=== PATIENT | female | born 1955 | race Caucasian/White ===

== ENCOUNTER 2017-09-01 14:12 | Emergency (ER) | payer BC ==
[2017-09-01 14:51] LABS: #Lymphocytes 1.2 thou/uL (1.20-3.40); #Monocytes 0.5 thou/uL (0.11-0.59); #Neutrophils 12.8 thou/uL (1.40-6.50); %Basophils 0.1 % (0.0-1.0); %Eosinophils 0.2 % (0.0-10.0); %Lymphocytes 7.9 % (21.0-51.0); %Monocytes 3.3 % (0.0-10.0); %Neutrophils 88.6 % (42.0-75.0); Hemoglobin 13.3 g/dL (12.0-16.0); Mean Corpuscular HGB CONC 32.1 g/dL (32.0-36.0); Mean Corpuscular Volume 90.2 fl (81.0-99.0); Mean Platelet Volume 6.7 fL (7.4-10.4); Platelet Count 456 thou/uL (130-400); RBC Distribution Width 14.1 % (11.5-14.5); White Blood Cell (WBC) Count 14.5 thou/uL (4.8-10.8)
[2017-09-01 15:12] LABS: ALT (SGPT) 40 U/L (8-55); AST (SGOT) 30 U/L (5-34); Alkaline Phosphatase 86 U/L (40-150); Anion Gap 13 mmol/L (10-20); BUN (Urea Nitrogen) 14 mg/dL (9.8-20.1); Bilirubin, Total 0.5 mg/dL (0.2-1.2); Calc. Creatinine Clearance 0 mL/min (70-130); Calcium 9.4 mg/dL (7.8-10.44); Carbon Dioxide 23 mmol/L (23-31); Chloride 105 mmol/L (98-107); Estimated GFR-MDRD 82; Globulin 3.7 g/dL (2.4-3.5); Glucose 131 mg/dL (80-115); Potassium 4.2 mmol/L (3.5-5.1); Protein, Total 7.7 g/dL (6.0-8.3); Sodium 137 mmol/L (136-145)
[2017-09-01] MEDS ORDERED: Ondansetron ODT 4 MG TAB ONE (15:12)
[2017-09-01 15:17] LABS: Troponin I Less than 0.010 ng/mL (< 0.028)
--- NOTE | 2017-09-01 16:00 | RAD ---
ONE VIEW CHEST TWO VIEWS ABDOMEN: HISTORY: Nausea. Vomiting. FINDINGS: Normal cardiac silhouette. The pulmonary vessels and hilum are normal. Costophrenic angles are yasmin r. Hyperinflation with chronic changes. No consolidation or mass. No pneumothorax. No osseous abn ormalities. Bilateral nipple shadows are noted. TWO VIEWS: Multiple surgical clips. Nonspecific bowel gas pattern. No pneumoperitoneum. No bowel distention o r dilatation. No suspicious density in the abdomen or pelvis. IMPRESSION: 1. Hyperinflation with chronic changes. 2. Nonspecific bowel gas pattern. POS: [facility]
== END 2017-09-01 18:06 | disposition home or self-care (01) ==
LOC: ERS 14:12
DX: R11.2 Nausea with vomiting, unspecified (principal); E03.9 Hypothyroidism, unspecified; F41.9 Anxiety disorder, unspecified; K58.9 Irritable bowel syndrome, unspecified; Z79.899 Other long term (current) drug therapy
CPT/HCPCS: 36415; 74022; 80053; 82553; 84484; 85025; 96360; 96361; Q0162

== ENCOUNTER 2018-04-25 21:30 | Inpatient (IN) | payer BC ==
[~2018-04-25 21:30] MED LIST: ISOVUE-370 76%-LOCM 1 ML ONE
[2018-04-25] MEDS ORDERED: Morphine 4 MG/ML VIAL ONE (21:57)
[2018-04-25] MEDS ORDERED: Ondansetron PF 4 MG/2 ML Vial ONE (21:57)
[2018-04-25] MEDS ORDERED: Fentanyl 100 MCG/2 ML VIAL ONE (22:30)
[2018-04-25 22:31] LABS: #Basophils 0.1 thou/uL (0.0-0.2); #Eosinphils 0.1 thou/uL (0.0-0.7); #Lymphocytes 2.7 thou/uL (1.20-3.40); #Monocytes 0.9 thou/uL (0.11-0.59); #Neutrophils 10.1 thou/uL (1.40-6.50); %Basophils 0.7 % (0.0-1.0); %Eosinophils 0.8 % (0.0-10.0); %Lymphocytes 19.3 % (21.0-51.0); %Monocytes 6.4 % (0.0-10.0); %Neutrophils 72.7 % (42.0-75.0); Hemoglobin 11.6 g/dL (12.0-16.0); Mean Corpuscular HGB CONC 30.9 g/dL (32.0-36.0); Mean Corpuscular Hemoglobin 27.9 pg (27.0-31.0); Mean Corpuscular Volume 90.3 fL (78.0-98.0); Mean Platelet Volume 6.2 fL (7.4-10.4); Platelet Count 712 thou/uL (130-400); RBC Distribution Width 14.6 % (11.5-14.5); Red Blood Cell (RBC) Count 4.16 mill/uL (4.20-5.40); White Blood Cell (WBC) Count 13.9 thou/uL (4.8-10.8)
[2018-04-25 22:51] LABS: ALT (SGPT) 7 U/L (8-55); AST (SGOT) 8 U/L (5-34); Alkaline Phosphatase 74 U/L (40-150); Anion Gap 15 mmol/L (10-20); BUN (Urea Nitrogen) 15 mg/dL (9.8-20.1); Bilirubin, Total 0.2 mg/dL (0.2-1.2); Calc. Creatinine Clearance 0 mL/min (70-130); Calcium 9.4 mg/dL (7.8-10.44); Carbon Dioxide 22 mmol/L (23-31); Chloride 105 mmol/L (98-107); Estimated GFR-MDRD Greater than 90; Globulin 4.2 g/dL (2.4-3.5); Glucose 81 mg/dL (80-115); Lipase 4 U/L (8-78); Potassium 4.4 mmol/L (3.5-5.1); Protein, Total 7.2 g/dL (6.0-8.3); Sodium 138 mmol/L (136-145)
[2018-04-25] MEDS ORDERED: Piperacillin/Tazobactam 3.375 GM VIAL ONE (23:46)
--- NOTE | 2018-04-25 23:51 | CT ---
CT ABDOMEN AND PELVIS WITH IV CONTRAST 04/25/18 HISTORY: Intermittent diarrhea and abdominal pain worse in the right lower quadrant. History of Crohn's diseas e. History of bowel ulceration and history of prior removal of small bowel and large bowel. COMPARISON: None available. FINDINGS: There are linear bibasilar densities probably related to bibasilar areas of scarring and/or atelectas is with lucency at the left lung base which may represent bleb in association with chronic lung alcazar es. There are calcifications seen within the liver which may be related to granulomatous disease. There are subcentimeter to small to characterize hypodense lesion seen in each kidney with a larger 1 .7 cm fluid attenuation lesion compatible with a cyst in the left kidney. There is mild left hydronep hrosis and hydroureter present. An approximately 2.7 cm fluid attenuation structure seen in the posterior segment right hepatic lobe compatible with a cyst with a few additional tiny subcentimeter to small to characterize hypodense le sions present. The spleen and pancreas as well as bilateral adrenal glands demonstrate a normal CT appearance. Dense vascular calcifications and atherosclerotic plaque are seen in the abdominal aorta and involvin g the iliac arteries. Multiple surgical clips are seen in a periaortic location as well. There are postsurgical changes in the right abdomen likely related to right hemicolectomy. There is r etained fecal material seen in the remainder of the colon. There are multiple dilated loops of small bowel, largest in the left aspect of the lower abdomen nacho uring 5.3 cm in diameter. Some of the dilated loops of small bowel also demonstrate thickened grey. There is appearance of a mass-like density within the central aspect of the upper pelvis which is mos t likely related to multiple thick walled loops of small bowel which are closely opposed and likely m atted together with associated inflammatory changes present. Centrally within this mass-like density there is an abnormal and irregular margin fluid and air collection likely related to abscess collecti on measuring 4 cm craniocaudal x 5 cm transverse x 2.9 cm AP. The dilated loops of small bowel extend up to this level and is likely the cause of the bowel obstruction which may be related to adhesions and inflammatory process within the central pelvis. No free fluid is seen in the pelvis. The urinary bladder is prominently distended. Degenerative changes are seen in the spine. There is sl ight height loss of the superior end plate of the L1 vertebral body. IMPRESSION: 1. Mass-like area of heterogeneity within the central pelvis which likely represents apposition of multiple thick walled loops of small bowel with associated inflammatory changes. There is a result ant small bowel obstruction with transition point in the region of this abnormal mass-like appearance of multiple closely opposed thick walled loops of bowel. Dilated loops of bowel measure up to 5.3 cm in diameter. Some of these dilated loops of small bowel are also thickened. Findings are likely attr ibutable to patient's known inflammatory bowel disease. 2. Centrally within the areas of multiple thick walled loops of bowel and inflammatory changes, there is an irregular fluid and air collection likely related to abscess collection with greatest dim ension of 5 cm transversely. 3. Postsurgical changes of the abdomen related to right hemicolectomy and removal of loops of sm all bowel. 4. Mild left hydronephrosis and hydroureter likely related to the distended urinary bladder; alt michelle, this could also be related to the inflammatory changes within the central pelvis. 5. Subcentimeter too small to characterize hypodense lesions in each kidney with left renal cyst . 6. Prominent distention of the urinary bladder. 7. Additional findings as described above. 8. Above findings discussed with Dr. Melvin in the Emergency Department on 04/25/18 at 2321 hour s. POS: [facility]
[2018-04-26] MEDS ORDERED: Lorazepam 2 MG/ML VIAL SLOW IVP PRN (00:28)
[2018-04-26] MEDS ORDERED: Ondansetron PF 4 MG/2 ML Vial IVP PRN (00:28)
[2018-04-26] MEDS ORDERED: Morphine 4 MG/ML VIAL SLOW IVP PRN (00:28)
[2018-04-26] MEDS ORDERED: hydrALAZINE 20 MG/ML VIAL SLOW IVP PRN (00:28)
[2018-04-26] MEDS ORDERED: Lactated Ringer's 1,000 ML IV SCH (00:45)
[2018-04-26 01:29] LABS: Bilirubin Negative (Negative); Blood, Urine Negative (Negative); Clarity CLEAR (Clear); Glucose, Urine (Dipstick) Negative (Negative); Leukocyte Negative (Negative); Nitrite Negative (Negative); Protein, Urine (Dipstick) Negative (Neg-Trace); Urobilinogen 0.2 mg/dL (0.2-1.0); pH, Urine 6.5 (5.0-9.0)
[2018-04-26] MEDS: Acetaminophen 1,000 MG in Premix Bag 1 BAG IVPB PRN ×2 (02:31→09:32)
[2018-04-26] MEDS: Lactated Ringer's 1,000 ML IV SCH ×4 (02:31→23:40)
--- NOTE | 2018-04-26 06:04 | HP ---
HISTORY OF PRESENT ILLNESS: Margoth Chew, 62-year-old female, lives in [place], has remote history of Crohn disease, but this diagnosis has been recently questioned. She has been followed by Dr. Nazario. The patient had a colonoscopy at [facility] last year. She has been having for the past year, abdominal discomfort and bloating. She was seen at [facility] several months ago and kept for several days without any radiological testing according to her and discharged home. She is very frustrated. She has been on Remicade for a year after which she stopped this. She stopped all of her Crohn's medications and has not had any problems until within the last year. The patient presents on this occasion and has a white count of 13, hemoglobin 11. Basic metabolic profile normal. She had a CAT scan of the abdomen and pelvis revealing markedly dilated small bowel loops consistent with a bowel obstruction. Bowel dilated up to 5 cm. The bowel seemed to be matted with central collection, probable abscess of 4 cm. NG tube has been placed. She has been admitted, IV antibiotics and GI consultation with high likelihood of her needing abdominal exploration for her bowel obstruction, abscess, and most likely Crohn's related problems. The patient requests that she would not see Dr. Nazario again. Her past surgical history is extensive. At 18 years of age, she reports a laparotomy and was told she had regional enteritis. At 22 years of age, she had a small bowel resection for Crohn disease. About two years later, she had another small bowel resection. About two years later after that, in her 20s, she had a balloon dilatation of small bowel. CAT scan suggests a right colon resection in the past. ALLERGIES: NONE. SOCIAL HISTORY: Tobacco 1/2 pack per day. Alcohol, socially. MEDICATIONS: None. PAST SURGICAL HISTORY: Extensive, including hysterectomy, appendectomy, breast implants and removal. She has history of hypothyroidism. PHYSICAL EXAMINATION: GENERAL: The patient is a thin lady, in no apparent distress. She seems frustrated with her condition. VITAL SIGNS: Heart rate 78, respiratory rate 18, blood pressure 136/74. HEAD, EARS, EYES, NOSE AND THROAT: Unremarkable. LUNGS: Clear to auscultation. CARDIAC: Regular rate and rhythm without murmur or gallop. ABDOMEN: Diffusely tender, mildly distended, mildly tympanitic. EXTREMITIES: Unremarkable. No ankle edema. LABORATORIES: As noted above. ASSESSMENT/PLAN: 1. Small bowel obstruction. We will place an NG tube. We will initiate the intravenous antibiotics. We will obtain GI consultation. She is related to past history of regional enteritis and has been on medication for that, but Dr. Nazario has questioned this diagnosis. The patient does not take any medication for her Crohn disease in the last year. She has had problems over the last year. We will await GI consultation. It is likely that she will need a laparotomy, adhesiolysis, drainage of abscess, possible bowel resection. 2. Tobacco abuse. Job ID: [id number]
[2018-04-26] MEDS: Ketorolac Tromethamine 30 MG/ML VIAL IVP SCH ×3 (06:05→18:13)
[2018-04-26] MEDS: Piperacillin/Tazobactam 3.375 GM in Sodium Chloride 0.9% 100 ML IVPB SCH ×3 (06:06→18:13)
[2018-04-26 06:36] VITALS: BMI 15.7
[2018-04-26 06:53] LABS: #Eosinphils 0.1 thou/uL (0.0-0.7); #Lymphocytes 2.2 thou/uL (1.20-3.40); #Monocytes 0.5 thou/uL (0.11-0.59); #Neutrophils 8.2 thou/uL (1.40-6.50); %Basophils 0.1 % (0.0-1.0); %Eosinophils 0.6 % (0.0-10.0); %Lymphocytes 20.2 % (21.0-51.0); %Monocytes 4.6 % (0.0-10.0); %Neutrophils 74.5 % (42.0-75.0); Hemoglobin 10.9 g/dL (12.0-16.0); Mean Corpuscular HGB CONC 31.5 g/dL (32.0-36.0); Mean Corpuscular Hemoglobin 28.3 pg (27.0-31.0); Mean Corpuscular Volume 89.6 fL (78.0-98.0); Mean Platelet Volume 6.2 fL (7.4-10.4); Platelet Count 785 thou/uL (130-400); RBC Distribution Width 14.6 % (11.5-14.5); Red Blood Cell (RBC) Count 3.87 mill/uL (4.20-5.40); White Blood Cell (WBC) Count 11.1 thou/uL (4.8-10.8)
[2018-04-26 07:10] LABS: ALT (SGPT) 8 U/L (8-55); AST (SGOT) 13 U/L (5-34); Albumin 2.7 g/dL (3.4-4.8); Alkaline Phosphatase 66 U/L (40-150); Anion Gap 14 mmol/L (10-20); BUN (Urea Nitrogen) 13 mg/dL (9.8-20.1); Bilirubin, Total 0.3 mg/dL (0.2-1.2); Calc. Creatinine Clearance 55 mL/min (70-130); Calcium 9.1 mg/dL (7.8-10.44); Carbon Dioxide 21 mmol/L (23-31); Chloride 109 mmol/L (98-107); Estimated GFR-MDRD Greater than 90; Globulin 3.8 g/dL (2.4-3.5); Glucose 79 mg/dL (80-115); Potassium 3.7 mmol/L (3.5-5.1); Protein, Total 6.5 g/dL (6.0-8.3); Sodium 140 mmol/L (136-145)
--- NOTE | 2018-04-26 08:46 | RAD ---
KUB: Date: 04/26/18 PROVIDED CLINICAL HISTORY: Enteric catheter placement. FINDINGS: Enteric catheter is noted, the tip of which projects in the left upper quadrant, in the expected loca tion of gastric fundus. Surgical clips are seen overlying the abdomen. The bowel gas pattern is nonsp ecific. Contrast material is seen within the renal collecting systems and ureters. The visualized lucy g bases appear clear. No evidence for pneumoperitoneum. IMPRESSION: Enteric catheter positioning as above. POS: [facility]
[2018-04-26] MEDS: Pantoprazole 40 MG VIAL IVP SCH (09:29)
--- NOTE | 2018-04-26 13:11 | RAD ---
2 VIEWS CHEST: Date: 04/26/18 PROVIDED CLINICAL HISTORY: Preop. FINDINGS: Cardiac and mediastinal silhouette is within normal limits. No focal consolidation, pleural fluid, or pneumothorax apparent. Enteric catheter is present, the proximal side hole lucency of which approxim ates the gastroesophageal junction and could be advanced. IMPRESSION: 1. No evidence for an acute cardiopulmonary process. 2. Enteric catheter positioning as above. POS: [facility]
--- NOTE | 2018-04-26 13:13 | RAD ---
2 VIEWS ABDOMEN: Date: 04/26/18 PROVIDED CLINICAL HISTORY: Right lower quadrant pain. FINDINGS: Comparison made with the study dated 04/26/18. Multiple loops of dilated gas-filled bowel are seen involving the left upper quadrant. Enteric cathet er positioned in the proximal left upper quadrant. No evidence for pneumoperitoneum. Multiple surgica l clips are seen. IMPRESSION: Dilated loops of gas-filled bowel within the left mid abdomen. POS: [facility]
--- NOTE | 2018-04-26 14:56 | PRG ---
DATE OF SERVICE: 04/26/2018 SUBJECTIVE: Margoth Chew is doing well today. OBJECTIVE: VITAL SIGNS: Temperature 98.2, heart rate 115, respirations 18, blood pressure 112/74. HEAD, EARS, EYES, NOSE, AND THROAT: Unremarkable. LUNGS: Clear to auscultation. CARDIAC: Rhythm without murmur or gallop. ABDOMEN: Diffusely tender, mildly distended, guarding. EXTREMITIES: Unremarkable. LABORATORY DATA: White count 11, hemoglobin 10.9. Basic metabolic profile normal. I have reviewed her CAT scan with Dr. Mazariegos and discussed with him as well as radiologist. ASSESSMENT AND PLAN: Plan is for laparotomy for bowel obstruction. Overnight, her NG tube has put out 650 plus milliliters, has put out abundant amount since 7 this morning. Risks of infection, bleeding, reoperation explained. We will plan placement of a central line and consider TPN. Further discussion with the patient reveals that she has suffered 25 pounds weight loss over the past year due to her GI problems. Her history and radiological findings certainly sound like Crohn disease. Dr. Mazariegos will be seeing her postoperatively for guidance for Crohn's management. Job ID: [id number]
[2018-04-26] MEDS ORDERED: Glycopyrrolate 0.2 MG/ML 5 ML SYRINGE ONE (15:32)
[2018-04-26] MEDS ORDERED: Naloxone HCl 0.4 mg/ml Vial ONE (15:32)
[2018-04-26] MEDS ORDERED: Ondansetron PF 4 MG/2 ML Vial ONE (15:32)
[2018-04-26] MEDS ORDERED: Rocuronium Bromide 10 MG/ML (10ML VIAL) ONE (15:32)
[2018-04-26] MEDS ORDERED: ePHEDrine/0.9% NaCl/PF SYRINGE 50 mg/10 ml ONE (15:32)
[2018-04-26] MEDS ORDERED: Lidocaine 1% PF 5 ML VIAL ONE (15:32)
[2018-04-26] MEDS ORDERED: PROPOFOL 200 MG/20 ML VIAL ONE (15:32)
[2018-04-26] MEDS ORDERED: Fentanyl 100 MCG/2 ML VIAL ONE ×2 (18:38→23:12)
[2018-04-26] MEDS ORDERED: Fentanyl 250 MCG/5 ML VIAL ONE (18:56)
[2018-04-26] MEDS ORDERED: Sodium Chloride 0.9% 30 ML ONE (19:11)
[2018-04-26] MEDS: Enoxaparin Sodium 40 MG/0.4 ML SYRINGE SC SCH (20:35)
[2018-04-26] MEDS ORDERED: Rocuronium Bromide 50 MG/5 ML VIAL ONE (21:37)
[2018-04-26] MEDS ORDERED: KETAMINE 100 MG/ML (5ML VIAL) ONE (21:37)
[2018-04-26] MEDS ORDERED: diphenhydrAMINE 50 MG/ML VIAL IVP PRN (23:17)
[2018-04-26] MEDS ORDERED: HYDROmorphone 2 MG/ML VIAL ONE (23:17)
[2018-04-26] MEDS ORDERED: Promethazine HCl 25 MG/ML VIAL IM PRN (23:17)
[2018-04-26] MEDS ORDERED: Zolpidem Tartrate 5 MG TAB PO PRN (23:17)
[2018-04-26] MEDS ORDERED: Naloxone HCl 0.4 mg/ml Vial IV PRN (23:17)
[2018-04-26] MEDS ORDERED: diphenhydrAMINE 25 MG CAP PO PRN (23:17)
[2018-04-26] MEDS ORDERED: diphenhydrAMINE 50 MG/ML VIAL IM PRN (23:17)
[2018-04-26] MEDS ORDERED: Communication Order-Pharmacy FS SCH (23:30)
--- NOTE | 2018-04-26 23:40 | RAD ---
PORTABLE AP CHEST X-RAY 04/26/18 HISTORY: Central line placement. COMPARISON: 04/26/18 at 1204 hours. FINDINGS: The nasogastric tube has been advanced, but the most proximal side hole overlies the region of the di stal esophagus and the nasogastric tube should be further advanced. There has been interval placement of a left subclavian central venous catheter with the tip overlying the distal SVC. No pneumothorax or pleural effusion is seen. There is mild atelectasis at each lung base, greater on the left. Cardia c silhouette and pulmonary vasculature are within normal limits. Surgical clips overlie the upper abd omen. No other interval change. IMPRESSION: 1. Nasogastric tube has been advanced since the prior study, but the most proximal side hole ove rlies the distal esophagus. The nasogastric tube should be advanced. 2. Interval placement of left subclavian central venous catheter with tip overlying the distal S VC. No pneumothorax is seen. 3. Bibasilar atelectasis. POS: [facility]
[2018-04-27] MEDS: Ketorolac Tromethamine 30 MG/ML VIAL IVP SCH ×5 (00:45→23:49)
[2018-04-27] MEDS: Piperacillin/Tazobactam 3.375 GM in Sodium Chloride 0.9% 100 ML IVPB SCH ×5 (00:46→23:50)
--- NOTE | 2018-04-27 00:49 | CON ---
DATE OF CONSULTATION: 04/26/2018 REASON FOR CONSULTATION: Abnormal GI imaging, probable history of Crohn's disease. CONSULTING PHYSICIAN: Dr. Danilo Valentino. HISTORY OF PRESENT ILLNESS: The patient is a 62-year-old female with past medical history of Crohn's disease, presenting with complaints of abdominal discomfort/pain. The patient states that over the last year and a half she has had recurrent bouts of intermittent abdominal pain characterized as increased cramping/sharp type pain located in the right lower quadrant. The pain would be intermittent, would radiate to the suprapubic and periumbilical regions and would reach a severity of approximately 8 to 9/10. There were no clear alleviating or exacerbating factors with prior extensive workup performed by Dr. Nazario over the last year and half including an upper endoscopy, colonoscopy, and multiple imaging studies. However, given worsening of her abdominal pain, it prompted her to seek healthcare assistance here at [facility]. Upon evaluation in the hospital, she had a CT scan revealing markedly dilated small loops of bowel consistent with a bowel obstruction. She subsequently had an NG tube placed, was placed on IV antibiotics with plans to proceed with laparoscopy today. Upon talking with the patient, she had been diagnosed with Crohn's disease in her early 20s when she had presenting symptoms of increased right lower quadrant abdominal pain and constipation/change in bowel habits. At that time, she had a workup consisting of a laparoscopy with biopsies at that time showing "regional enteritis." With this particular diagnosis, no treatment was given and no further studies were performed and she had complete resolution of her pain for several years afterwards. However, approximately 10-15 years later, she had return of her abdominal pain and was evaluated in the hospital. She was noted to have a small-bowel obstruction at that particular point in time and subsequently treated with surgical resection as well as antibiotics for that particular condition. Ultimately, she has had a total of 2 small bowel resections during the last 20-30 years with unknown amount of small bowel resected. However, after the 2nd small bowel obstruction, she was placed on azulfidine with questionable response in symptoms. 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 She was subsequently placed on Remicade and received approximately four doses of the medication with significant improvement in her symptoms. Over the next 10-15 years, she did not have any further recurrences of her symptoms and was not being followed by GI physician during that time. However, approximately 1.5 years ago she had again increased right lower quadrant abdominal pain as well as signs of sepsis for which she was admitted to the [facility], there she was evaluated by Dr. Nazario with EGD and colonoscopy not showing any significant pathology. Given the small bowel involvement of her Crohn's disease, she has never had a capsule endoscopy and CT scans in the past have been relatively normal for overt pathology. Currently, she states that she has increased nausea, vomiting, and right lower quadrant abdominal pain. However, denies any fevers or chills, diarrhea, or constipation. REVIEW OF SYSTEMS: A 10-category review of systems was obtained with all responses negative except for the pertinent positives as listed in HPI. PAST MEDICAL HISTORY: Regional enteritis/Crohn's disease. PAST SURGICAL HISTORY: 1. Hysterectomy. 2. Appendectomy. 3. Breast implants and removal. FAMILY HISTORY: She states that her mother was diagnosed with Crohn's disease. Denies any GI malignancies. SOCIAL HISTORY: She previously had been smoking one half pack per day, now she currently engages in e-cigarettes. Denies any alcohol or illicit drug use. OUTPATIENT MEDICATIONS: None. ALLERGIES: NO KNOWN DRUG ALLERGIES. PHYSICAL EXAMINATION: VITAL SIGNS: Temperature 98.2, pulse 115, blood pressure 112/74, respiratory rate 18, saturating 94% on room air. GENERAL: The patient was lying in bed, in no acute distress. Alert and oriented x4. HEENT: Normocephalic, atraumatic. NECK: Supple. No JVD or scleral icterus noted. A NG tube was seen emanating from her left nares, placed to low intermittent wall suction with clear fluid aspirate. CARDIOVASCULAR: Tachycardic rate, but regular rhythm. No discernible murmurs, gallops, or rubs. RESPIRATORY: Clear to auscultation bilaterally with no discernible wheezes or rales. ABDOMEN: High-pitched bowel sounds primarily within the periumbilical region. Soft, [id number] distention with significant tenderness to palpation in the midepigastric, periumbilical and all abdominal quadrants. Peristaltic waves were noted on inspection as well. EXTREMITIES: No cyanosis, clubbing, or edema. LABORATORY DATA: CBC with a white blood cell count of 11.1, hemoglobin 10.9, hematocrit 34.7, platelets 785. Chemistry with a sodium of 140, potassium 3.7, chloride 109, CO2 of 21, BUN 13, creatinine 0.65, glucose 79, AST 13, ALT 8, alkaline phosphatase 66, total bilirubin 0.3, albumin 2.7, lipase 4. Urinalysis negative for urinary tract infection. IMAGING DATA: CT of the abdomen and pelvis was obtained on April 25, 2018, which showed a mass like area of heterogeneity within the central pelvis, which likely represented multiple thick walled loops of small bowel with associated inflammatory changes resulting in a small bowel obstruction with transition point at the region of this abnormal masslike structure. Multiple dilated loops of bowel were seen measuring up to 5.3 cm in diameter with some of the dilated loops also thickened consistent with known inflammatory bowel disease. There was also an irregular fluid and air collection, likely related to an abscess with the greatest dimension measuring approximately 5 cm transversely. Postsurgical changes consistent with right hemicolectomy and removal of small bowel loops were seen and mild left hydronephrosis and hydroureter were also seen likely related to distended urinary bladder. ASSESSMENT AND PLAN: The patient is a 62-year-old female with past medical history of Crohn's disease, presenting with abdominal pain and abnormal GI imaging. Abdominal pain/Crohn's flare. The patient is presenting with a history where she was diagnosed with Crohn's disease in her 20s and has undergone multiple surgeries in the past for small bowel obstructions, most likely related to flares in her Crohn's disease. She had been placed on biologic therapy in the past and experienced significant relief in her symptoms with no further episodes of small-bowel obstruction. However, the administration of Remicade was not on a regular basis with return of what appears to be her Crohn's type symptoms over the course of the last year and year and half, now presenting with increased right lower quadrant abdominal pain and CT findings consistent with multiple thickened small bowel loops as well as a fluid collection consistent with a 5 cm abscess within the bowel mesentery. At this time, based on her imaging and her clinical history, it sounds consistent with inflammatory bowel disease/Crohn's with a probable Crohn's flare. RECOMMENDATIONS: 1. Agree with taking the patient for laparoscopy today for resection of the small-bowel obstruction as well as drainage of the abscess as part of treatment for her Crohn's disease. 2. Agree with broad-spectrum antibiotics at least for the time being until cultures of the abscess are obtained and antibiotics can be tailored further. 3. We would hold off on steroid management right now in the postoperative given concern for recurrent infection and/or wound breakdown. 4. The patient will ultimately need to be followed up in the GI clinic and re-evaluated for this diagnosis of Crohn's disease, which the pathology report from bowel resection today should help with that diagnosis. If indeed this is Crohn's disease, she will ultimately need to be placed on biologic therapy given the presence of small bowel Crohn's, which could be considered complicated disease. Given her response to Remicade in the past, this would be an ideal choice, but may be more amenable to newer biologics. 5. We will continue to follow. Please call with any questions. Job ID: [id number]
[2018-04-27] MEDS: Lactated Ringer's 1,000 ML IV SCH ×3 (00:54→17:21)
--- NOTE | 2018-04-27 03:11 | OP ---
DATE OF PROCEDURE: 04/26/2018 PREOPERATIVE DIAGNOSES: History of Crohn disease, small-bowel obstruction, interloop abscesses, weight loss, tobacco use. POSTOPERATIVE DIAGNOSES: History of Crohn disease, small-bowel obstruction, interloop abscesses, weight loss, tobacco use with extensive adhesions and two separate interloop abscesses. PROCEDURES PERFORMED: Left subclavian vein central line, exploratory laparotomy, extensive adhesiolysis for 3 to 3-1/2 hours, ileocolic resection (prior right colectomy anastomosis) with ileostomy. ANESTHESIA: General. Note, a Kim catheter left in place as the bladder was tightly adherent to the small bowels with the sigmoid colon. There were dense adhesions of small bowel to the abdomen with interloop abscess. In this location, also another area of the terminal ileum interloop abscesses, matted small bowel in the left lower quadrant, two separate processes. DESCRIPTION OF PROCEDURE: The patient was taken to the operating room, where under general anesthesia in supine position, the left chest was prepared with ChloraPrep, draped in routine fashion. Using Seldinger technique, after access to the left subclavian vein by infraclavicular approach, threading the J-wire, placing the catheter, removed the J-wire, secured the catheter with two interrupted sutures of 3-0 silk. Sterile dressing applied. Each port filled with blood and flushed with saline solution. Abdomen was prepared with ChloraPrep, draped in routine fashion. Kim catheter was placed at the beginning of the procedure and left in place. Incision was made and carried down through skin and subcutaneous tissue, midline and abdominal cavity sharply. There were extensive adhesions to the anterior abdominal wall taken down piecely, freeing adhesions. There was an inflammatory process with an abscess in her loop terminal ileum adherent to the right lower quadrant mid abdominal wall. This took a prolonged period of time to take down as did another process of the terminal ileum with matted small bowel adherent to the bladder, abdominal wall and the sigmoid colon. These areas were piecely dissected free. There was a firmness in the small bowel involved with matted process. Yellow purulent material drained from each of the two matted abscesses. Sigmoid colon was kept free of harm, carefully inspected although it was secondarily involved, it was not violated. Bladder was also involved in inflammatory process and was carefully dissected free and there was no evidence of bladder injury. Once the adhesions were taken down, the ileocolic anastomosis was so inflamed and so closely adherent to the two areas of the ileum that involved in an interloop abscess and inflammation and scarring. The segment of small bowel and ileocolic anastomosis were taken down, dividing the transverse colon with EDDA stapler, divided the mesentery with the LigaSure and between clamps, ligated with 2-0 silk ties. This was dissected free close to the bowel. The healthy area of the bowel proximal to the inflammatory abscess areas were divided with a EDDA stapler. Abdominal cavity was thoroughly irrigated with saline solution, irrigant evacuated. Good hemostasis obtained. Sponge and needle counts were correct. Defect was made in the left lower quadrant for the ileostomy. The left lower quadrant was chosen because of induration and inflammation on the right abdomen from the interloop abscesses and adhesions. The patient had a very thin rectus muscle. Ellipse of skin was excised. Cruciate incision was made in the anterior rectus fascia and fascia dilated digitally to accommodate the ileostomy. It was brought through and then two separate films were placed on the viscera and abdominal wall and there was essentially no omentum. The midline fascia was closed with continuous suture of #1 PDS. Skin and subcutaneous tissues were irrigated and midline skin approximated at the midline about the umbilicus with ana, left open superiorly and inferiorly. Wet-to-dry dressings applied. Ileostomy maturation undertaken by excising the staple line partially and placing 4 Clara sutures of 3-0 Vicryl and simple sutures of 3-0 Vicryl with complete maturation. Stoma paste and ileostomy appliance secured. The patient tolerated the procedure well. Job ID: [id number]
[2018-04-27] MEDS: Ondansetron PF 4 MG/2 ML Vial IVP PRN ×2 (03:16→10:13)
[2018-04-27 03:59] LABS: ALT (SGPT) 7 U/L (8-55); AST (SGOT) 8 U/L (5-34); Albumin 1.9 g/dL (3.4-4.8); Alkaline Phosphatase 49 U/L (40-150); Anion Gap 11 mmol/L (10-20); BUN (Urea Nitrogen) 14 mg/dL (9.8-20.1); Bilirubin, Total 0.4 mg/dL (0.2-1.2); Calc. Creatinine Clearance 57 mL/min (70-130); Calcium 7.7 mg/dL (7.8-10.44); Carbon Dioxide 20 mmol/L (23-31); Chloride 111 mmol/L (98-107); Estimated GFR-MDRD Greater than 90; Globulin 2.8 g/dL (2.4-3.5); Glucose 110 mg/dL (80-115); Magnesium 0.8 mg/dL (1.6-2.6); Potassium 3.1 mmol/L (3.5-5.1); Protein, Total 4.7 g/dL (6.0-8.3); Sodium 139 mmol/L (136-145)
[2018-04-27] MEDS ORDERED: Magnesium 2 GM/50 ML 2 GM in Premix Bag 1 BAG IVPB SCH ×2 (04:45→17:45)
[2018-04-27 07:11] LABS: Band 62 % (5-11); Hemoglobin 10.3 g/dL (12.0-16.0); Lymphocytes 11 % (21-51); MDiff Complete? YES; Mean Corpuscular HGB CONC 31.4 g/dL (32.0-36.0); Mean Corpuscular Hemoglobin 28.3 pg (27.0-31.0); Mean Corpuscular Volume 90.1 fL (78.0-98.0); Metamyelocyte 1 % (0-0); Monocytes 3 % (0-10); Myelocyte 2 % (0-0); Neutrophil 21 % (42-75); Platelet Count 608 thou/uL (130-400); RBC Distribution Width 14.1 % (11.5-14.5); Red Blood Cell (RBC) Count 3.65 mill/uL (4.20-5.40); Reflex for Review?? YES; White Blood Cell (WBC) Count 23.2 thou/uL (4.8-10.8)
[2018-04-27] MEDS: Pantoprazole 40 MG VIAL IVP SCH (08:06)
[2018-04-27] MEDS: Potassium Chloride 20 MEQ in Lactated Ringer's 1,000 ML IV SCH (18:45)
[2018-04-27] MEDS ORDERED: Potassium Chloride 40 MEQ in Premix Bag 1 BAG IVPB SCH (19:00)
--- NOTE | 2018-04-27 19:07 | PRG ---
DATE OF SERVICE: 04/27/2018 SUBJECTIVE: Ms. Chew is doing well today, one day postop, extensive adhesiolysis more than 3 hours with colon and small bowel resection, ileostomy for extensive Crohn disease, matted bowel, bowel obstruction, interloop abscesses x2. OBJECTIVE: VITAL SIGNS: Temperature 97.4 degrees, heart rate 67, blood pressure 95/61. GENERAL: She is ambulated. She is feeling fairly well. 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 Her gastric drainage is 2500 mL over 24 hours. Kim output 200 mL recorded. We left her Kim in place due to her bladder be involved in the Crohn's process. Although there is no hematuria, will need to rest the bladder for a few days prior to removing the Kim. LUNGS: Clear to auscultation. CARDIAC: Regular rate and rhythm without murmur or gallop. ABDOMEN: Soft, nondistended. No bowel sounds. Ileostomy healthy. LABORATORY DATA: White count 23,000, hemoglobin 10.3. Sodium 139, potassium 3.1, magnesium 0.8 replaced. We will give her another bolus tonight. ASSESSMENT AND PLAN: 1. Crohn disease exacerbation, status post extensive surgery and ileostomy. This can be reversed in the future. 2. Malnutrition. We will initiate TPN. Continue IV fluids, NG tube to awaiting GI recovery. Wound Care has seen her wound and attending to that. Job ID: [id number]
[2018-04-27] MEDS: busPIRone HCl 10 MG TAB PO SCH (20:25)
[2018-04-27] MEDS: Enoxaparin Sodium 40 MG/0.4 ML SYRINGE SC SCH (20:25)
--- NOTE | 2018-04-27 23:25 | PRG ---
DATE OF SERVICE: 04/27/2018 REASON FOR CONSULTATION: Crohn disease. SUBJECTIVE: The patient underwent laparotomy yesterday with extensive adhesiolysis as well as small-bowel resection and ileostomy for extensive Crohn disease. Interloop abscesses x2 were also found during this and successfully intervened upon. Today, she states that her abdomen feels significantly improved when compared to previous with no pain at the current point of time. She does continue to have the NG tube in place per General Surgery recommendations. Currently, denies any nausea, vomiting, fevers, chills, GI bleeding, or abdominal pain. OBJECTIVE: VITAL SIGNS: Temperature 97.5, pulse 78, blood pressure 94/59, respiratory rate 20, saturating 96% on room air. GENERAL: The patient is lying in bed, in no acute distress. Alert and oriented x4. CARDIOVASCULAR: Regular rate and rhythm. RESPIRATORY: Clear to auscultation bilaterally. ABDOMEN: Hypoactive bowel sounds. Soft and nondistended. Tenderness to palpation along the trocar sites. EXTREMITIES: No cyanosis, clubbing, or edema. LABORATORY DATA: CBC with a white blood cell count 23.2, hemoglobin 10.3, hematocrit 32.9, platelets 608. Chemistry with a sodium of 139, potassium 3.1, chloride 111, CO2 20, BUN 14, creatinine 0.63, glucose 110, AST 8, ALT 7, alkaline phosphatase 49, total bilirubin 0.4. IMAGING DATA: No current GI imaging is available for review. ASSESSMENT AND PLAN: The patient is a 62-year-old female with past medical history of Crohn disease, presenting with abdominal pain and abnormal gastrointestinal imaging consistent with inflammatory bowel disease flare. Abdominal pain/Crohn flare. The patient is presenting with a longstanding history of Crohn disease that was diagnosed in her 20s and has gone multiple small bowel surgeries due to small-bowel obstructions secondary to uncontrolled Crohn disease, now currently presenting with increased right lower quadrant abdominal pain and CT findings consistent with Crohn disease of the small intestine as well as abscess formation. She ultimately underwent laparoscopy on April 26, 2018 with extensive lysis of adhesions, small bowel resection as well as intervention upon two interloop abscesses, currently doing well in the postoperative period. RECOMMENDATIONS: 1. We would hold off on steroid management for right now in the postoperative given concern for infection and/or wound breakdown. Most likely, these could be started shortly before discharge with followup in the GI Clinic as an outpatient. If steroids were to be started, we would start prednisone 40 mg daily with close followup in the GI Clinic within two weeks after discharge. 2. Ultimately, the patient will need to be followed up in the GI Clinic and re-evaluated for the diagnosis of Crohn disease with the small bowel resected yesterday guiding a fair amount of future therapy as well as confirm the diagnosis of Crohn disease (if present). Given the multiple small-bowel obstructions and presence of small bowel Crohn, this could be considered complicated disease, which would require more aggressive approach to include biologic plus immune modulator therapy. 3. We will sign off at this time. Please have the patient follow up in the GI Clinic within two weeks of discharge with placing the patient on prednisone 40 mg daily at discharge in order to start treatment for her Crohn disease at which point, we will take over and taper down the steroids at her soonest clinic visit. Job ID: [id number]
[2018-04-28] MEDS: Ondansetron PF 4 MG/2 ML Vial IVP PRN (02:58)
[2018-04-28 03:32] LABS: Anion Gap 11 mmol/L (10-20); BUN (Urea Nitrogen) 16 mg/dL (9.8-20.1); Calc. Creatinine Clearance 58 mL/min (70-130); Calcium 7.7 mg/dL (7.8-10.44); Carbon Dioxide 22 mmol/L (23-31); Chloride 108 mmol/L (98-107); Estimated GFR-MDRD Greater than 90; Glucose 94 mg/dL (80-115); Magnesium 2.2 mg/dL (1.6-2.6); Potassium 4.3 mmol/L (3.5-5.1); Sodium 137 mmol/L (136-145)
[2018-04-28] MEDS: Piperacillin/Tazobactam 3.375 GM in Sodium Chloride 0.9% 100 ML IVPB SCH ×4 (05:51→23:09)
[2018-04-28] MEDS: Ketorolac Tromethamine 30 MG/ML VIAL IVP SCH ×4 (05:51→23:10)
[2018-04-28] MEDS: HYDROmorphone 10 mg/100 ml CADD IVPB PRN (05:52)
[2018-04-28] MEDS: Levothyroxine 100 MCG SDV IVP SCH (05:52)
[2018-04-28] MEDS ORDERED: Levothyroxine Sodium 75 MCG TAB PO SCH (06:00)
[2018-04-28] MEDS: Potassium Chloride 20 MEQ in Lactated Ringer's 1,000 ML IV SCH ×2 (09:13→18:32)
[2018-04-28] MEDS: busPIRone HCl 10 MG TAB PO SCH ×3 (09:14→20:30)
[2018-04-28] MEDS: Pantoprazole 40 MG VIAL IVP SCH (09:14)
[2018-04-28] MEDS: DULoxetine 30 MG CAP PO SCH (09:14)
--- NOTE | 2018-04-28 13:35 | PRG ---
DATE OF SERVICE: 04/28/2018 SUBJECTIVE: Margoth Chew is doing well today. She has no complaints. 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 OBJECTIVE: VITAL SIGNS: 97.4 degrees, 72, and 102/63. NG-tube output in 24 hours 750 mL. Kim output 650 mL. LUNGS: Clear to auscultation. CARDIAC: Regular rate and rhythm. No murmur or gallop. ABDOMEN: Soft, nontender, and nondistended. No bowel sounds. Ileostomy healthy. She has had some output of her ileostomy. LABORATORY DATA: White count 23,000, today hemoglobin 10.3, and 62% bands. Sodium 137, potassium 4.3, BUN and creatinine normal, and magnesium has been replaced, was normal at 2.2. ASSESSMENT AND PLAN: 1. Ileus as expected after 3.5 hour of adhesiolysis and ileocolic resection. Await pathology. Continue antibiotics for drainage of intraabdominal abscesses related to most likely Crohn disease. Await pathology. 2. Malnutrition. Start TPN. Awaiting pharmacy to mix this. 3. Good mobility level. Job ID: [id number]
[2018-04-28] MEDS: POTASSIUM ACETATE IV SCH (15:15)
[2018-04-28] MEDS: [UNRECOGNIZED DRUG - OTHER] IV SCH (15:15)
[2018-04-28] MEDS: CALCIUM CHLORIDE IV SCH (15:15)
[2018-04-28] MEDS: Enoxaparin Sodium 40 MG/0.4 ML SYRINGE SC SCH (20:30)
[2018-04-29] MEDS: Potassium Chloride 20 MEQ in Lactated Ringer's 1,000 ML IV SCH ×2 (02:51→09:03)
[2018-04-29] MEDS: Levothyroxine 100 MCG SDV IVP SCH (05:26)
[2018-04-29] MEDS: Ketorolac Tromethamine 30 MG/ML VIAL IVP SCH ×4 (05:26→23:50)
[2018-04-29] MEDS: Piperacillin/Tazobactam 3.375 GM in Sodium Chloride 0.9% 100 ML IVPB SCH ×4 (05:26→23:52)
[2018-04-29] MEDS: busPIRone HCl 10 MG TAB PO SCH ×3 (09:25→20:27)
[2018-04-29] MEDS: DULoxetine 30 MG CAP PO SCH (09:25)
[2018-04-29] MEDS: Pantoprazole 40 MG VIAL IVP SCH (09:25)
[2018-04-29] MEDS: CALCIUM CHLORIDE IV SCH (13:55)
[2018-04-29] MEDS: [UNRECOGNIZED DRUG - OTHER] IV SCH (13:55)
[2018-04-29] MEDS: POTASSIUM ACETATE IV SCH (13:55)
--- NOTE | 2018-04-29 15:24 | PRG ---
DATE OF SERVICE: 04/29/2018 SUBJECTIVE: Margoth Chew is a 62-year-old female status post extensive adhesiolysis, ileostomy, and ileocolic resection 2 days ago. She is doing fairly well. She is not having much pain. She is taking the ice chips. OBJECTIVE: VITAL SIGNS: 98.2 degrees, 69, and 120/75. NG-tube output last 24 hours, 750 mL. Urine output 800 mL. Kim was removed yesterday and she is voiding. She is started on TPN. LUNGS: Clear to auscultation. CARDIAC: Regular rate and rhythm without murmur or gallop. ABDOMEN: Soft, flat, and nondistended. Ileostomy healthy. EXTREMITIES: Unremarkable. Wound VAC in place. LABORATORY DATA: No labs today. ASSESSMENT AND PLAN: Doing well after laparotomy and ileostomy. Pathology report reveals transmural acute inflammation and abscess formation. No malignancy. No mentions of inflammatory bowel disease. Trial of clamping her NG-tube. Check residuals this evening. Consider removing it pending her clinical course. Job ID: [id number]
[2018-04-29] MEDS: Enoxaparin Sodium 40 MG/0.4 ML SYRINGE SC SCH (20:26)
[2018-04-29] MEDS: HYDROmorphone 10 mg/100 ml CADD IVPB PRN (23:51)
[2018-04-30] MEDS: Potassium Chloride 20 MEQ in Lactated Ringer's 1,000 ML IV SCH ×3 (01:23→12:30)
[2018-04-30] MEDS ORDERED: HumaLOG 300 UNITS/3 ML VIAL SC PRN (05:05)
[2018-04-30] MEDS ORDERED: Dextrose 50% Abboject 50 ML SYRINGE IVP PRN (05:05)
[2018-04-30] MEDS ORDERED: Dextrose 5% in Water 1,000 ML IV PRN (05:05)
[2018-04-30] MEDS: Piperacillin/Tazobactam 3.375 GM in Sodium Chloride 0.9% 100 ML IVPB SCH ×4 (05:57→23:39)
[2018-04-30] MEDS: Levothyroxine 100 MCG SDV IVP SCH (05:57)
[2018-04-30] MEDS: Ketorolac Tromethamine 30 MG/ML VIAL IVP SCH ×4 (05:58→23:39)
[2018-04-30 06:43] LABS: #Eosinphils 0.3 thou/uL (0.0-0.7); #Lymphocytes 1.5 thou/uL (1.20-3.40); #Monocytes 0.5 thou/uL (0.11-0.59); #Neutrophils 11.6 thou/uL (1.40-6.50); %Basophils 0.2 % (0.0-1.0); %Eosinophils 2.1 % (0.0-10.0); %Lymphocytes 10.8 % (21.0-51.0); %Monocytes 3.7 % (0.0-10.0); %Neutrophils 83.3 % (42.0-75.0); Hemoglobin 7.5 g/dL (12.0-16.0); Mean Corpuscular HGB CONC 31.4 g/dL (32.0-36.0); Mean Corpuscular Hemoglobin 28.4 pg (27.0-31.0); Mean Corpuscular Volume 90.5 fL (78.0-98.0); Mean Platelet Volume 6.6 fL (7.4-10.4); Platelet Count 453 thou/uL (130-400); RBC Distribution Width 14.3 % (11.5-14.5); Red Blood Cell (RBC) Count 2.62 mill/uL (4.20-5.40); White Blood Cell (WBC) Count 13.9 thou/uL (4.8-10.8)
[2018-04-30 07:05] LABS: ALT (SGPT) Less than 7 U/L (8-55); AST (SGOT) 10 U/L (5-34); Albumin 1.9 g/dL (3.4-4.8); Alkaline Phosphatase 49 U/L (40-150); Anion Gap 8 mmol/L (10-20); BUN (Urea Nitrogen) 18 mg/dL (9.8-20.1); Bilirubin, Total 0.2 mg/dL (0.2-1.2); Calc. Creatinine Clearance 90 mL/min (70-130); Calcium 8.1 mg/dL (7.8-10.44); Carbon Dioxide 29 mmol/L (23-31); Chloride 101 mmol/L (98-107); Estimated GFR-MDRD Greater than 90; Globulin 2.9 g/dL (2.4-3.5); Glucose 63 mg/dL (80-115); Magnesium 1.9 mg/dL (1.6-2.6); Potassium 4.9 mmol/L (3.5-5.1); Protein, Total 4.8 g/dL (6.0-8.3); Sodium 133 mmol/L (136-145)
[2018-04-30] MEDS: Pantoprazole 40 MG VIAL IVP SCH (08:13)
[2018-04-30] MEDS: DULoxetine 30 MG CAP PO SCH (08:13)
[2018-04-30] MEDS: busPIRone HCl 10 MG TAB PO SCH ×3 (08:13→20:08)
[2018-04-30] MEDS: CALCIUM CHLORIDE IV SCH (15:14)
[2018-04-30] MEDS: POTASSIUM ACETATE IV SCH (15:14)
[2018-04-30] MEDS: [UNRECOGNIZED DRUG - OTHER] IV SCH (15:14)
--- NOTE | 2018-04-30 17:02 | PRG ---
DATE OF SERVICE: 04/30/2018 SUBJECTIVE: Margoth Chew is doing well today. NG tube was removed last night as her residual after clamping NG tube for 8 hours was only 50. OBJECTIVE: VITAL SIGNS: Temperature 98 degrees, pulse 78, blood pressure . LUNGS: Clear to auscultation. CARDIAC: Regular rate and rhythm. No murmur or gallop. ABDOMEN: Soft, nondistended, and nontender. Ileostomy is healthy. EXTREMITIES: Unremarkable. LABORATORY DATA: White count 13, hemoglobin 7.5. Basic metabolic profile is normal. Sodium 133, potassium 4.9. ASSESSMENT AND PLAN: The patient is doing well. 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 Would increase her diet to clear to full liquids as tolerated. Instructed on ileostomy care. Anticipate discharge home possibly in 24 to 48 hours. Job ID: [id number]
[2018-04-30] MEDS: Enoxaparin Sodium 40 MG/0.4 ML SYRINGE SC SCH (20:08)
[2018-05-01] MEDS: Potassium Chloride 20 MEQ in Lactated Ringer's 1,000 ML IV SCH (05:41)
[2018-05-01] MEDS: Piperacillin/Tazobactam 3.375 GM in Sodium Chloride 0.9% 100 ML IVPB SCH (05:52)
[2018-05-01] MEDS: Ketorolac Tromethamine 30 MG/ML VIAL IVP SCH (05:53)
[2018-05-01] MEDS: Levothyroxine 100 MCG SDV IVP SCH (05:53)
[2018-05-01] MEDS: busPIRone HCl 10 MG TAB PO SCH ×3 (08:18→20:11)
[2018-05-01] MEDS: DULoxetine 30 MG CAP PO SCH (08:18)
[2018-05-01] MEDS: Pantoprazole 40 MG VIAL IVP SCH (08:19)
[2018-05-01] MEDS ORDERED: Ketorolac Tromethamine 30 MG/ML VIAL IVP PRN (11:20)
[2018-05-01] MEDS ORDERED: traMADol HCl 50 MG TAB PO PRN (11:24)
[2018-05-01] MEDS ORDERED: busPIRone HCl 10 MG TAB PO SCH (15:00)
--- NOTE | 2018-05-01 15:04 | PRG ---
DATE OF SERVICE: 05/01/2018 SUBJECTIVE: Margoth Chew is doing well today. She is tolerating her diet. We have started a regular diet today. Today, I have talked to Pathology to review her pathology as her past history suggest regional enteritis and that was not mentioned in the pathology report from the small bowel, colon resection. The patient's ileostomy is functioning well. OBJECTIVE: VITAL SIGNS: Temperature 98.6 degrees, pulse 67, blood pressure 119/73. LUNGS: Clear to auscultation. CARDIAC: Regular rate and rhythm. No murmur or gallop. ABDOMEN: Soft, nontender. Good bowel sounds. Ileostomy healthy. LABORATORY DATA: None today. ASSESSMENT AND PLAN: Doing well. PLAN: Discharge home tomorrow with home health nursing, ileostomy supplies and she will do her wound care along with Home Health. I will see her in my office in 2 to 3 weeks postop. She can have her ileostomy reversed in the future. Job ID: [id number]
[2018-05-01] MEDS: Acetaminophen 500 MG TAB PO PRN (15:35)
[2018-05-01] MEDS: Ibuprofen 600 MG TAB PO PRN (15:35)
[2018-05-01] MEDS: Enoxaparin Sodium 40 MG/0.4 ML SYRINGE SC SCH (20:11)
[2018-05-01] MEDS: traMADol HCl 50 MG TAB PO PRN (20:13)
[2018-05-02] MEDS: Acetaminophen 500 MG TAB PO PRN ×2 (01:13→09:03)
[2018-05-02] MEDS: Ibuprofen 600 MG TAB PO PRN ×2 (01:13→09:02)
[2018-05-02] MEDS: busPIRone HCl 10 MG TAB PO SCH ×2 (08:11→14:47)
[2018-05-02] MEDS ORDERED: Levothyroxine Sodium 75 MCG TAB PO SCH ×2 (09:00)
[2018-05-02] MEDS ORDERED: DULoxetine 30 MG CAP PO SCH ×2 (09:00)
--- NOTE | 2018-05-02 11:45 | PRG ---
DATE OF SERVICE: 05/02/2018 SUBJECTIVE: Ms. Chew is doing well today. She is tolerating her diet. Ileostomy is functioning well. She has been instructed on ileostomy care. OBJECTIVE: VITAL SIGNS: Temperature 98.3 degrees, pulse 66, blood pressure 117/73. LUNGS: Clear to auscultation. CARDIAC: Regular rate and rhythm. No murmur or gallop. ABDOMEN: Soft and nontender. EXTREMITIES: Unremarkable. Ileostomy healthy. ASSESSMENT AND PLAN: Doing well. PLAN: Discharge home today. Follow up in my office in approximately 10 days. Diet and activity as tolerated. No lifting over 20 pounds for 6 weeks. with Ultram. Resume her home medication. She does not have much pain. Most of pain is taken care by Tylenol and ibuprofen. Job ID: [id number]
[2018-05-02] MEDS: traMADol HCl 50 MG TAB PO PRN (14:47)
[2018-05-02 16:09] VITALS: BP 127/78; TEMP 99.1
--- NOTE | 2018-05-03 04:37 | DIS ---
DATE OF ADMISSION: 04/25/2018 DATE OF DISCHARGE: 05/02/2018 DISCHARGE DIAGNOSES: Small bowel obstruction; two separate interloop abscesses with severe adhesions between interloop abscess process and sigmoid colon, bladder, and abdominal wall; resection of previous ileotransverse colic anastomosis with small bowel resection. Note: Pathology to be reviewed as patient has previous history of Crohn disease and initial pathology report did not mention Crohn disease. CONSULTATION,: Dr. Ferguson, this hospitalization will see her as an outpatient. The patient was admitted, underwent a CAT scan from the emergency room, revealing the above problems. They were not amenable to percutaneous drainage. The patient was taken to the operating room after discussion with Gastroenterology. The above operation was undertaken. Postoperatively, she convalesced and tolerated diet and discharged home today to resume her home medications. 1. Synthroid daily. 2. Duloxetine daily. 3. Buspirone t.i.d. 4. Tramadol p.r.n. 5. Ibuprofen 600 mg t.i.d. p.r.n. 6. Tylenol 1000 mg q.i.d. p.r.n. pain. FOLLOWUP: Follow up with Dr. Valentino in 10 days for staple removal. Follow up with Dr. Ferguson, GI, in the next few weeks. Avoid lifting over 25 pounds. Ultram 50, #30, 2 refills given, although she did not think she would fill them as she was not having much pain. Ileostomy supplies given. She has an open wound, was given wound supplies to care for that. Job ID: [id number]
--- NOTE | 2018-05-03 23:17 | EKG ---
Test Reason : Blood Pressure : / mmHG Vent. Rate : 076 BPM Atrial Rate : 076 BPM P-R Int : 112 ms QRS Dur : 092 ms QT Int : 398 ms P-R-T Axes : 023 057 055 degrees QTc Int : 447 ms Normal sinus rhythm Septal infarct , age undetermined Abnormal ECG Confirmed by FELISA MATA ([id number]), international editorial producer HOLLI YU ([id number] on 05/03/2018 11:17:16 PM Referred By: Confirmed By:FELISA MATA
== END 2018-05-02 18:55 | disposition home or self-care (01) | DRG 329 ==
LOC: ERS 21:30 → SURG B 23:26
PROVIDERS: ADMIT Specialist; ATTEND Specialist
PROC: 0D9670Z Drainage of Stomach with Drainage Device, Via Natural or Artificial Opening (ICD-10-PCS; principal; 2018-04-25)
PROC: 0DBB0ZZ Excision of Ileum, Open Approach (ICD-10-PCS; 2018-04-26)
PROC: 0DNB0ZZ Release Ileum, Open Approach (ICD-10-PCS; 2018-04-26)
PROC: 0D1B0Z4 Bypass Ileum to Cutaneous, Open Approach (ICD-10-PCS; 2018-04-26)
PROC: 05H633Z Insertion of Infusion Device into Left Subclavian Vein, Percutaneous Approach (ICD-10-PCS; 2018-04-26)
PROC: 30233N1 Transfusion of Nonautologous Red Blood Cells into Peripheral Vein, Percutaneous Approach (ICD-10-PCS; 2018-04-26)
PROC: 3E0336Z Introduction of Nutritional Substance into Peripheral Vein, Percutaneous Approach (ICD-10-PCS; 2018-04-27)
DX: K56.609 Unspecified intestinal obstruction, unspecified as to partial versus complete obstruction (principal); K65.1 Peritoneal abscess; K50.90 Crohn's disease, unspecified, without complications; E46 Unspecified protein-calorie malnutrition; Z68.1 Body mass index [BMI] 19.9 or less, adult; F17.210 Nicotine dependence, cigarettes, uncomplicated; E03.9 Hypothyroidism, unspecified; K66.0 Peritoneal adhesions (postprocedural) (postinfection); K56.7 Ileus, unspecified
CPT/HCPCS: 36415; 36416; 36430; 71045; 71046; 74018; 74019; 74177; 80048; 80053; 81003; 83605; 83690; 83735; 84100; 85025; 85060; 86850; 86900; 86901; 88307; 90471; 90732; 93005; 96361; 96365; 96375; C9113; G0009; J0131; J1170; J1650; J1815; J1885; J2001; J2270; J2310; J2405; J2543; J2704; J3010; J3475; J3480; J7050; J7120; P9016

== ENCOUNTER 2018-05-07 10:21 | Outpatient (CLI) | payer BC ==
--- NOTE | 2018-05-07 14:02 | HP ---
HISTORY OF PRESENT ILLNESS: Ms. Margoth Chew is a very pleasant 62-year-old, who presents to the Wound Center for evaluation of a wound of the abdomen in the midline subsequent to ileocolic resection with ileostomy on 04/26/2018, by Dr. Danilo Valentino. Subsequent to the patient's discharge from [facility], the patient was referred to the Wound Center for further evaluation and treatment. Prior to the patient's discharge, the midline wound had been dressed with Aquacel Ag or Silvercel followed by Tegaderm +Pad. The patient has no complaints today. She denies any fever or chills. PAST MEDICAL HISTORY: 1. Crohn disease/regional enteritis. 2. Hypothyroidism. PAST SURGICAL HISTORY: 1. Small-bowel resection x2. 2. Hysterectomy. 3. Breast implants status post removal, remote. 4. Ileocolic resection with ileostomy. 5. Surgery for abdominal aortic aneurysm. MEDICATIONS: 1. Buspirone. 2. Synthroid. 3. Duloxetine. 4. Multivitamin. 5. Calcium. 6. Tylenol. 7. Ibuprofen. 8. Ultram. ALLERGIES: CODEINE. SOCIAL HISTORY: Social history is significant for tobacco use of up to one-half pack of cigarettes per day for 30 years. The patient admits to only the rare consumption of alcohol. FAMILY HISTORY: Family history is negative for diabetes mellitus or coronary artery disease. REVIEW OF SYSTEMS: The patient states that she stopped smoking seven years ago. PHYSICAL EXAMINATION: VITAL SIGNS: Temperature 97.9, pulse 73, respirations 18, and blood pressure 107/64. GENERAL: 62-year-old female sitting on chair in examination room, in no acute distress. HEENT: Normocephalic and atraumatic. NECK: No nuchal rigidity. CHEST: Clear to auscultation. CV: Regular rate and rhythm. ABDOMEN: Soft. A wound of the abdomen in the midline is present. The wound edges in the middle of the wound are approximated with ana. Granulation tissue is visible within the wound margins. No purulent drainage is associated with the wound. No erythema of the skin surrounding the wound is present. No maceration of the skin of the periwound is noted. EXTREMITIES: No clubbing or cyanosis. NEUROLOGIC: Grossly nonfocal. ASSESSMENT AND PLAN: 1. Midline abdominal wound subsequent to ileocolic resection with ileostomy on 04/26/2018, by Dr. Danilo Valentino. As stated above, the wound edges of the middle of the wound are approximated with ana. Dressing changes of Silvercel, followed by an ABD secured with tape will be initiated today. These dressing changes are to be performed on a daily basis or alternatively every other day after cleansing and irrigation. The patient's daughter will be assisting Ms. Chew with dressing changes. Arrangements will be made for the home delivery of dressing supplies. I will see Ms. Chew again in 2 weeks. No antibiotics will be prescribed today based upon the appearance of the wound. The patient understands and is in agreement with the preceding treatment plan. She states she will schedule a followup appointment with Dr. Valentino in one week and will return to the Wound Center in 2 weeks. 2. Regional enteritis/Crohn disease. 3. Hypothyroidism. Job ID: [id number]
[2018-05-07] MEDS ORDERED: Sodium Chloride 0.9% 15 ML NEB ONE (15:00)
== END 2018-05-07 10:22 | disposition home or self-care (01) ==
LOC: WCC 10:21
PROVIDERS: ATTEND Family Medicine
DX: T81.89XD Other complications of procedures, not elsewhere classified, subsequent encounter (principal); K50.90 Crohn's disease, unspecified, without complications; E03.9 Hypothyroidism, unspecified
CPT/HCPCS: A4218

== ENCOUNTER 2018-05-20 14:02 | Inpatient (IN) | payer BC ==
[2018-05-20] MEDS ORDERED: traMADol HCl 50 MG TAB PO PRN (14:19)
[2018-05-20 14:34] VITALS: BMI 13.8
[2018-05-20] MEDS: traMADol HCl 50 MG TAB PO PRN ×2 (14:44→20:54)
[2018-05-20 15:03] LABS: #Basophils 0.1 thou/uL (0.0-0.2); #Eosinphils 0.2 thou/uL (0.0-0.7); #Lymphocytes 2.5 thou/uL (1.20-3.40); #Monocytes 0.5 thou/uL (0.11-0.59); #Neutrophils 7.6 thou/uL (1.40-6.50); %Basophils 0.6 % (0.0-1.0); %Monocytes 4.4 % (0.0-10.0); Hemoglobin 11.3 g/dL (12.0-16.0); Mean Corpuscular HGB CONC 31.9 g/dL (32.0-36.0); Mean Corpuscular Hemoglobin 27.8 pg (27.0-31.0); Mean Corpuscular Volume 87.3 fL (78.0-98.0); Mean Platelet Volume 6.4 fL (7.4-10.4); Platelet Count 820 thou/uL (130-400); RBC Distribution Width 14.8 % (11.5-14.5); Red Blood Cell (RBC) Count 4.04 mill/uL (4.20-5.40); White Blood Cell (WBC) Count 10.9 thou/uL (4.8-10.8)
[2018-05-20 15:41] LABS: ALT (SGPT) 46 U/L (8-55); AST (SGOT) 35 U/L (5-34); Albumin 3.9 g/dL (3.4-4.8); Alkaline Phosphatase 130 U/L (40-150); Anion Gap 17 mmol/L (10-20); BUN (Urea Nitrogen) 39 mg/dL (9.8-20.1); Bilirubin, Total 0.3 mg/dL (0.2-1.2); Calc. Creatinine Clearance 32 mL/min (70-130); Calcium 10.2 mg/dL (7.8-10.44); Carbon Dioxide 23 mmol/L (23-31); Chloride 95 mmol/L (98-107); Estimated GFR-MDRD 56; Globulin 5.3 g/dL (2.4-3.5); Glucose 133 mg/dL (80-115); Phosphorus 4.4 mg/dL (2.3-4.7); Potassium 3.8 mmol/L (3.5-5.1); Protein, Total 9.2 g/dL (6.0-8.3); Sodium 131 mmol/L (136-145)
[2018-05-20] MEDS ORDERED: Heparin 1,000 UNITS/ML VIAL ONE (15:42)
--- NOTE | 2018-05-20 16:10 | SPC ---
LEFT UPPER EXTREMITY PICC LINE WITH ULTRASOUND GUIDANCE: HISTORY: TPN is required. COMPARISON: None. EXPOSURE: 0.8 minutes. 430 mGy per cm2. FINDINGS: Successful left upper extremity PICC line placement with ultrasound guidance. The dual-lumen 5-Frenc h catheter flushes and aspirates without difficulty. Trim length is 43 cm. TECHNIQUE: Consent obtained to perform a left upper extremity PICC line with ultrasound guidance. The left arm was prepped and draped in a sterile fashion. Lidocaine 1% was used for local anesthesia. Under ultr asound guidance, a small basilic vein was identified. Using a micropuncture needle, the basilic vein was cannulated. A 0.018 guidewire was advanced through the needle, to the level of the superior nishant a cava. Under fluoroscopy, the wire was advanced into the inferior vena cava, to document venous acc ess. The wire was subsequently pulled back to the cavoatrial junction. The dual-lumen 5-Albanian cath eter was placed, after the tract was dilated. Both lumens flush and aspirate without difficulty. Tr im length was 43 cm. IMPRESSION: Successful left upper extremity peripherally inserted central catheter line placement with ultrasound guidance. POS: ESTHER
[2018-05-20] MEDS ORDERED: Acetaminophen 500 MG TAB PO PRN (17:21)
[2018-05-20] MEDS ORDERED: Cosyntropin 250 MCG VIAL SLOW IVP SCH (17:30)
[2018-05-20] MEDS ORDERED: Insulin Regular 300 UNITS/3 ML VIAL SC PRN ×3 (18:22→18:55)
[2018-05-20] MEDS ORDERED: Dextrose 50% Abboject 50 ML SYRINGE IVP PRN (18:22)
[2018-05-20] MEDS ORDERED: Dextrose 5% in Water 1,000 ML IV PRN ×2 (18:22→18:55)
[2018-05-20] MEDS: Thiamine HCl 200 MG/2 ML VIAL SLOW IVP SCH (18:39)
[2018-05-20] MEDS ORDERED: Dextrose 50% Abboject 50 ML SYRINGE SLOW IVP PRN (18:55)
[2018-05-20] MEDS: Sodium Chloride 0.9% 1,000 ML IV SCH (20:40)
[2018-05-20] MEDS: Enoxaparin Sodium 40 MG/0.4 ML SYRINGE SC SCH (20:40)
[2018-05-20] MEDS: SODIUM ACETATE IV SCH (22:31)
[2018-05-20] MEDS: POTASSIUM ACETATE IV SCH (22:31)
[2018-05-20] MEDS: SODIUM CHLORIDE IV SCH (22:31)
[2018-05-20] MEDS: [UNRECOGNIZED DRUG - OTHER] IV SCH (22:31)
[2018-05-21] MEDS: traMADol HCl 50 MG TAB PO PRN ×3 (02:54→17:12)
[2018-05-21] MEDS: Sodium Chloride 0.9% 1,000 ML IV SCH ×3 (04:08→15:34)
[2018-05-21] MEDS ORDERED: Ondansetron ODT 8 MG TAB PO PRN (06:44)
--- NOTE | 2018-05-21 08:05 | HP ---
HISTORY OF PRESENT ILLNESS: Margoth Chew is a 62-year-old female with a long history of Crohn disease. The patient is status post 04/26/2018 prolonged laparotomy and adhesiolysis performed by me. She had had a previous right colectomy. She during that operation underwent a 3.5-hour adhesiolysis, ileocolic resection, and ileostomy formation. Dissection was very difficult. There were multiple adhesions toward the bladder. She had multiple interloop abscesses. Pathology suggested severe adhesive disease and inflammatory changes on initial interpretation, but I asked Pathology to review these slides in pathology and it was their conclusion. Although there were no granulomatous findings, disease was consistent with Crohn disease. The patient in the past has been followed by Dr. 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 Dr. Mazariegos has an appointment to see her in the next one or two days. The patient postoperatively was discharged home with home health arrangements, but she states that home health arrangements could not be made and no Home Health has seen her. She did undergo ileostomy care instructions prior to discharge and has been doing well in that regard. She does not have any complaints of skin irritation. She has been using skin protectors beneath her ileostomy appliance. The patient reports that her baseline weight is 115 pounds. Prior to her operation, she reports a weight of 89 to 90 pounds and by the time of this office visit, she is 77 pounds. The patient states she has been eating tremendous amount of calories in an effort to gain weight, but continues to lose weight. The patient is admitted for malnourishment, PICC line administration, TPN administration, and arrangement for home TPN to supplement her oral intake. A Dietary consult has been requested. PICC line has been requested. Wound care and wound VAC applications have been requested. On discharge, she had separation of her lower wound. She has been applying silver dressings to this every 2 to 3 days. I told her today that she could remove the dressing, shower, wash the wound with soap and water, getting that wet, and then apply the dressings and she was pleased to hear this. She is happy to not have to do sponge baths. Wound Care will be asked to see her regarding the application of the wound VAC and outpatient arrangements for a wound VAC. The patient lives in [place] and does have transportation resources to come to the hospital twice a week for wound VAC changes if necessary. 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 By the time of this dictation, the patient's laboratories have returned and surprisingly, her prealbumin is 37 and her vitamin B12 is normal. The patient reports that she has been having terrible weakness, falling episodes , in fact, fell yesterday and hit her head. She appeared dehydrated in my office. On admission, her BUN is 39, creatinine 1, sodium 131, and potassium 3.8. Considering these findings, the patient is admitted for PICC line and TPN administration and considering the normal prealbumin and albumin and considering that I removed 25 cm of small bowel, not knowing what length of small bowel was removed in the past for previous small-bowel resection and right colon resection, consideration of short -gut syndrome was made, although at the time of the operation, I did not measure her remaining small bowel, but I did feel that she had adequate small bowel that she would not have short-gut syndrome. We will, however, initiate TPN and PICC line. Obtain random cortisol level as well as a corticotropin stimulation test and obtain a TSH level. We will ask MAXIM Hercules to see her for his input. Hopefully, she can be discharged home later in the week with PICC line, TPN infusion, and outpatient wound care VAC. ALLERGIES: CODEINE. SOCIAL HISTORY: Tobacco; 10 yr tobacco cessation. Alcohol, none. MEDICATIONS: 1. Cymbalta daily. 2. Tramadol daily as needed. PHYSICAL EXAMINATION: GENERAL: 77 pounds, 5 feet 2 inches, BMI 14. VITAL SIGNS: Blood pressure 107/71, pulse 89, temperature 97 degrees. HEAD, EARS, EYES, NOSE, AND THROAT: Unremarkable. LUNGS: Clear to auscultation. CARDIAC: Regular rate and rhythm without murmur or gallop. ABDOMEN: Soft, flat, nondistended, nontender. Healthy ileostomy in left abdomen. Midline wound; intact upper. Lower midline wound, infraumbilical, reveals open wound approximately 3 cm x 2 cm. It tunnels cephalad, 6 cm. Upper wound ana removed. Lower wound ana x2 left in place to hold the lower wound together. Normal saline wet-to-dry dressings applied. EXTREMITIES: Thin. No ankle edema. ASSESSMENT AND PLAN: 1. Weight loss, malnourishment, dehydration, prerenal azotemia, and acute kidney injury. Admit to the hospital. Hydration. Initiate TPN. Arrange PICC line. Home TPN. Arrange wound care with wound VAC. Cortisol level, corticotropin stimulation test in the morning. TSH level. Consult Gastroenterology, Dr. Mazariegos. 2. History of tobacco abuse. 3. Suspect Crohn disease with prior right colectomy and small-bowel resection. 4. The patient at 18 years of age had a laparotomy and was told she had regional enteritis. At 22 years of age, she had a small-bowel resection for Crohn disease. About 2 years later, at 24 years of age, she had another small-bowel resection. Two years after that at about 26 years of age, she had a balloon dilatation of her small bowel. CAT scan and operative intervention recently confirmed previous right colon resection during these past operations. More recent 3.5-hour adhesiolysis, extensive with resection of ileocolic anastomosis and ileostomy, anastomosis not performed due to severe weight loss, malnourishment, and tobacco use at that time. Tobacco cessation since. Job ID: [id number] [email or web address]
[2018-05-21] MEDS: Zinc Sulfate 220 MG CAP PO SCH (09:43)
[2018-05-21] MEDS: Ascorbic Acid 500 mg Chewable Tablet PO SCH (09:44)
[2018-05-21] MEDS ORDERED: Acetaminophen 500 MG TAB PO PRN (15:11)
[2018-05-21] MEDS ORDERED: Ibuprofen 600 MG TAB PO PRN (15:11)
[2018-05-21] MEDS: Ondansetron PF 4 MG/2 ML Vial IVP PRN (15:27)
[2018-05-21] MEDS: Thiamine HCl 200 MG/2 ML VIAL SLOW IVP SCH (18:01)
--- NOTE | 2018-05-21 18:57 | PRG ---
DATE OF SERVICE: 05/21/2018 SUBJECTIVE: Ms. Chew is feeling better today, now that she has been hydrated. OBJECTIVE: VITAL SIGNS: Temperature 98.2 degrees, heart rate 82, blood pressure 102/67. LUNGS: Clear to auscultation. CARDIAC: Regular rate and rhythm without murmur or gallop. ABDOMEN: Soft, nontender. EXTREMITIES: Unremarkable. White count 10, hemoglobin 11.3 yesterday. Today, her TSH was 7.3, which is markedly high. She is on thyroid replacement, but this may need to be increased. Cortisol stimulation test results pending. PICC line has been placed. She has been started on TPN. She is tolerating her diet. ASSESSMENT AND PLAN: 1. Deep venous thrombosis prophylaxis. 2. Hypothyroidism, thyroid dose may be increased. We will discuss with Dr. Mazariegos. 3. Cortisol stimulation test results pending. 4. Dehydration, improved. 5. Acute kidney injury, improved with hydration. 6. Suspect adrenal insufficiency. 7. Weight loss. 8. Unstable gait due to dehydration and malnourishment. 9. Continue weight loss and cachexia. Job ID: [id number]
[2018-05-21] MEDS: Enoxaparin Sodium 40 MG/0.4 ML SYRINGE SC SCH (21:09)
[2018-05-21] MEDS: [UNRECOGNIZED DRUG - OTHER] IV SCH (22:54)
[2018-05-21] MEDS: SODIUM ACETATE IV SCH (22:54)
[2018-05-21] MEDS: SODIUM CHLORIDE IV SCH (22:54)
[2018-05-21] MEDS: POTASSIUM ACETATE IV SCH (22:54)
[2018-05-22] MEDS: traMADol HCl 50 MG TAB PO PRN ×4 (00:22→22:45)
[2018-05-22] MEDS: Ondansetron PF 4 MG/2 ML Vial IVP PRN (02:35)
--- NOTE | 2018-05-22 03:38 | CON ---
DATE OF CONSULTATION: 05/21/2018 REASON FOR CONSULTATION: Small bowel Crohn's disease. CONSULTING PHYSICIAN: Dr. Danilo Valentino. HISTORY OF PRESENT ILLNESS: The patient is a 62-year-old female with a longstanding history of Crohn's disease who was recently admitted to the hospital with complaints of increased abdominal pain secondary to exacerbation of her Crohn's disease. On imaging, she was noted to have abscesses within the mesentery surrounding small bowel and subsequently underwent laparoscopy with draining of these abscesses in addition to adhesiolysis and resection of approximately 25 cm of small bowel. She was ultimately discharged to home in good condition with plans to have the patient follow up in the GI Clinic for further management of her Crohn's disease. However, while at home while she did have a significant appetite, she continued to have increased ostomy output as well as weight loss of approximately 10 pounds over the course of 1-2 weeks after admission. With this increased weight loss, she also experienced occasional episodes of mild dizziness that were transient and self-limiting, but she ultimately sought healthcare assistance due to her weight loss despite increased appetite at home and increased ostomy output. Today, she states that she is doing well and had been able to tolerate eating her breakfast, lunch and dinner with calorie counts noted on the patient's chart as showing that she had eaten approximately 75-100 percent of all food given. She is also being supplemented with Ensure shakes approximately 2-3 bottles per day and has been able to tolerate this since. Upon questioning the patient, she did not understand the importance of nutritional supplementation with things like Ensure as an outpatient and had only been able to tolerate 1 can every other day. As an outpatient prior to being admitted to the hospital, she also stated she was emptying her ileostomy around every 2 hours with multiple semi-solid stools, but that has since slowed down since she has been here in the hospital. Currently, she denies any nausea, vomiting, fevers, chills, abdominal pain, GI bleeding, dysphagia, odynophagia or constipation. REVIEW OF SYSTEMS: A 10-category review of systems was obtained with all responses negative except for the pertinent positives as listed in the HPI. PAST MEDICAL HISTORY: Regional enteritis/Crohn's disease. PAST SURGICAL HISTORY: 1. Hysterectomy. 2. Appendectomy. 3. Breast implant placement and removal. FAMILY HISTORY: States her mother was diagnosed with Crohn's disease, but denies any GI malignancies. SOCIAL HISTORY: She had smoked approximately 1 half pack per day, but quit tobacco use approximately 10 years ago. She has been engaging in E-cigarette use until lately. Denies any alcohol or illicit drug use. OUTPATIENT MEDICATIONS: 1. Cymbalta daily. 2. Tramadol daily as needed for pain. ALLERGIES: CODEINE. PHYSICAL EXAMINATION: VITAL SIGNS: Temperature 98.3, pulse 83, blood pressure 81/49, respiratory rate 16, saturating 97% on room air. GENERAL: The patient was sitting at bedside, eating dinner when interviewed, in no acute distress. Alert and oriented x4. HEENT: Neck is supple. No JVD or scleral icterus noted. Normocephalic, atraumatic. CARDIOVASCULAR: Regular rate and rhythm with no discernible murmurs, gallops, or rubs. RESPIRATORY: Clear to auscultation bilaterally with no discernible wheezes or rales. ABDOMEN: Normoactive bowel sounds. Soft, nondistended, nontender. Ileostomy noted just left to the midline of abdomen without any skin breakdown or purulence surrounding the appliance. EXTREMITIES: No cyanosis, clubbing, or edema, although she was cachectic in appearance. LABORATORY DATA: Labs from May 20, 2018, showed a white blood cell count of 10.9, hemoglobin 11.3, hematocrit 35.3, platelets 820. Chemistry showing a sodium of 131, potassium 3.8, chloride 95, CO2 of 23, BUN 39, creatinine 1, glucose 133, AST 35, ALT 46, alkaline phosphatase 130, total bilirubin 0.3. Her albumin 0.7 with a pre-albumin of 37. IMAGING DATA: No current GI imaging is available for review. ASSESSMENT AND PLAN: The patient is a 62-year-old female with past medical history of Crohn's disease presenting with recent hospitalization for Crohn's flare/intra-abdominal abscess requiring laparoscopy, now presenting with moderate protein calorie malnutrition. Malnutrition/Crohn's disease. The patient was initially diagnosed with Crohn's disease in her 20s and has undergone multiple surgeries in the past for small bowel obstructions, likely related to prior flares in her Crohn's disease. She had been placed on biologic therapy (Remicade) in the past and experienced significant relief in her symptoms with no further episodes during this administration. However, upon discontinuation of her Remicade, she did have return of what appears to be a Crohn's type flare over the course of the last year and a half and during her last hospitalization, presented with increased abdominal pain and CT findings consistent with multiple abscess formation within the bowel mesentery as well as multiple thickened small bowel loops consistent with Crohn's disease flare. She subsequently underwent laparoscopy and adhesiolysis with ileostomy formation. In the postoperative period, she did not experience any postoperative complications and had significant reduction of her pain within 24 hours after the procedure itself. She was ultimately discharged to home with plans to follow up in the GI Clinic for further management of her Crohn's disease. However, while in the outpatient basis, and despite a significant appetite, she continued to lose approximately 10-15 pounds over the last 1-2 weeks, raising concern for malnutrition and/or malabsorption of ingested food stuffs. Upon questioning the patient today, she had been eating a fair amount of soups and blobs and not necessarily high protein or high caloric type supplements including Ensure as an outpatient prior to this admission, which could have ultimately resulted in malnutrition. However, given the recent laparoscopy and small bowel resection of approximately 25 cm when added to her prior small bowel resections, it is unclear if she may be even exhibiting short-gut syndrome with an inadequate length of small bowel to provide adequate absorption of nutrients/minerals. At this time, attempts are being made to optimize her nutrition with calorie counting and nutritional supplementation, which could potentially turn her current clinical picture around. RECOMMENDATIONS: 1. We would consider placing the patient on budesonide 9 mg for inflammation associated with possible Crohn's disease arising in the the postoperative period, although usually do not see evidence of these changes until approximately 6 weeks after surgery. 2. The patient will need TPMT and chronic hepatitis B evaluation prior to placement on immunosuppressive therapy, which the patient will ultimately need as an outpatient in the form of immunomodulators or a biological combination of the 2. 3. Agree with optimization of nutritional status at the current point in time. 4. We would consider grabbing a serum citrulline level to evaluate for possible short-bowel syndrome. 5. We would consider supplementation with IV fluids in addition to oral intake given probable increased fluid losses from increased ileostomy output. 6. If she continues to have significant ileostomy output, we would consider obtaining stool sample for possible infectious etiology. 7. We will avoid any higher fiber type content meals at this point time. 8. We would avoid any NSAIDs as this could cause further irritation of the GI tract. 9. We will continue to follow. Please call with any questions. Job ID: [id number]
[2018-05-22] MEDS: Sodium Chloride 0.9% 1,000 ML IV SCH ×3 (05:22→20:35)
[2018-05-22] MEDS ORDERED: Levothyroxine Sodium 75 MCG TAB PO SCH (06:00)
[2018-05-22 06:28] LABS: HBSAB Concentration 0.76 mIU/mL; HBSAg Index 0.21 S/CO (0-0.99); Hep B Core Total Ab Non-Reactive (NonReactive); Hep B Core Total Index 0.16 S/CO (0-0.79); Hep B Surf AB Non-Reactive (NonReactive); Hep B Surf Ag Non-Reactive S/CO (NonReactive); Hep C IgG Ab Non-Reactive (NonReactive)
[2018-05-22] MEDS: Zinc Sulfate 220 MG CAP PO SCH (08:53)
[2018-05-22] MEDS: DULoxetine 30 MG CAP PO SCH (08:53)
[2018-05-22] MEDS: Ascorbic Acid 500 mg Chewable Tablet PO SCH (08:53)
[2018-05-22] MEDS: busPIRone HCl 10 MG TAB PO SCH ×2 (15:05→20:35)
--- NOTE | 2018-05-22 17:35 | PRG ---
DATE OF SERVICE: 05/22/2018 SUBJECTIVE: Ms. Chew is doing very well. OBJECTIVE: VITAL SIGNS: Temperature 98 degrees, pulse 83, and blood pressure 104/59. LUNGS: Clear to auscultation. CARDIAC: Regular rate and rhythm. No murmur or gallop. ABDOMEN: Soft, nontender. Ileostomy output has slowed down over the last 24 hours. No laboratories today. We will check it in the morning. She feels much better after receiving TPN and being rehydrated. Her acute kidney injury and dehydration were probably improved. We will check her labs in the morning. I have rewritten her TPN orders. She is ready for discharge home with outpatient wound care, wound VAC twice a week as an outpatient at [facility]. She has transportation to come for outpatient wound care. Home infusion therapy is being arranged. TPN due to her weight loss malnourishment. She is ready for discharge home Saturday morning, 05/23/2018. If infusion therapy has arranged, we will teach her management of her infusion, saline locks, etc. Job ID: [id number]
--- NOTE | 2018-05-22 18:59 | PRG ---
DATE OF SERVICE: 05/22/2018 REASON FOR CONSULTATION: Small bowel Crohn disease, status post resection. SUBJECTIVE: The patient states that she is feeling much better today with increased energy. No abdominal pain and decreased weakness. She had been placed on TPN in the last 24 hours, and with IV fluid administration, has been doing well. She has also been able to tolerate approximately 75% to 100% of her diet as well as decreased ileostomy output also within the last 12 to 24 hours. Currently, she denies any nausea, vomiting, fevers, chills, or GI bleeding. OBJECTIVE: VITAL SIGNS: Temperature 98.4, pulse 83, blood pressure 104/59, respiratory rate 14, and saturating 98% on room air. GENERAL: The patient is sitting at bedside, in no acute distress. Alert and oriented x4. CARDIOVASCULAR: Regular rate and rhythm. RESPIRATORY: Clear to auscultation bilaterally. ABDOMEN: Normoactive bowel sounds. Soft, nontender, nondistended. Ileostomy noted just left of midline without any skin breakdown or purulence surrounding the appliance. EXTREMITIES: No cyanosis, clubbing, or edema. LABORATORY DATA: Hepatitis B antigen antibody and total core antibody were all negative. Hepatitis C antibody was negative. HIV antibody was also negative. Fecal fat still pending at this time. IMAGING DATA: No current GI imaging is available for review. ASSESSMENT AND PLAN: The patient is a 62-year-old female with past medical history of Crohn disease, presenting with recent hospitalization for Crohn's flare/intra-abdominal abscess, requiring laparoscopy and small bowel resection, now presenting with moderate protein-calorie malnutrition. Moderate protein-calorie malnutrition/Crohn disease. The patient initially presented with a flare of her Crohn disease approximately 1 month ago and was noted on CT scans to have multiple abscess formations within the bowel mesentery as well as multiple thickened small bowel loops consistent with Crohn disease flare. She subsequently underwent laparoscopy and adhesiolysis with ileostomy formation. In the postoperative period, she did well and was ultimately discharged to home, but while at home, despite having a vigorous appetite, was unable to adequately hydrate/take in enough calories to operate and subsequently lost approximately 10 to 15 pounds over the last 1 to 2 weeks, raising concern for malnutrition and/or malabsorption of ingested food stuffs. During this hospitalization, she has been able to tolerate her oral diet well, eating approximately 75% to 100% of her food trays; however, with a higher likelihood of short-bowel syndrome, she was also placed on TPN therapy with plans to continue this as an outpatient for short period of time. At this point, whether or not this is truly short-bowel syndrome is unclear with the fecal fat possibly helping to help indicate whether or not fat is being absorbed within the GI tract. If a significant amount of fecal fat is in her ileostomy output, then yes, there is a higher likelihood of short-bowel syndrome. At this point with dietary management, she is being optimized in terms of her nutrition in terms of oral and total parenteral nutrition. RECOMMENDATIONS: 1. We would consider placing the patient on budesonide 9 mg daily for inflammation associated possible Crohn disease flare, although at this point, her current clinical situation does not match that and usually do not see the change until approximately 6 weeks after surgery. 2. We will draw TPMT level prior to placement on immunosuppressive therapy with plans to place the patient on an immunomodulator and biologic as an outpatient. 3. I agree with optimization of nutritional status. 4. We would consider grabbing a serum citrulline level to evaluate for possible short-bowel syndrome as it does correlate well with the degree of intestinal mass. 5. If she continues to have significant ileostomy output, we will consider obtaining a stool sample for possible infectious etiology. We will continue to follow. Please call with any questions. Job ID: [id number]
[2018-05-22] MEDS: Thiamine HCl 200 MG/2 ML VIAL SLOW IVP SCH (19:21)
[2018-05-22] MEDS: Enoxaparin Sodium 40 MG/0.4 ML SYRINGE SC SCH (20:35)
[2018-05-22] MEDS ORDERED: SODIUM ACETATE IV SCH (22:00)
[2018-05-22] MEDS ORDERED: [UNRECOGNIZED DRUG - OTHER] IV SCH (22:00)
[2018-05-22] MEDS ORDERED: SODIUM CHLORIDE IV SCH (22:00)
[2018-05-22] MEDS ORDERED: POTASSIUM ACETATE IV SCH (22:00)
[2018-05-23] MEDS: Ondansetron PF 4 MG/2 ML Vial IVP PRN (00:36)
[2018-05-23] MEDS: Sodium Chloride 0.9% 1,000 ML IV SCH ×3 (04:35→18:02)
[2018-05-23] MEDS ORDERED: Levothyroxine Sodium 125 MCG TAB PO SCH (06:00)
[2018-05-23 06:02] LABS: #Eosinphils 0.3 thou/uL (0.0-0.7); #Lymphocytes 2.2 thou/uL (1.20-3.40); #Monocytes 0.6 thou/uL (0.11-0.59); #Neutrophils 4.4 thou/uL (1.40-6.50); %Basophils 0.6 % (0.0-1.0); %Eosinophils 3.8 % (0.0-10.0); %Lymphocytes 28.9 % (21.0-51.0); %Neutrophils 58.6 % (42.0-75.0); Hemoglobin 8.1 g/dL (12.0-16.0); Mean Corpuscular HGB CONC 33.1 g/dL (32.0-36.0); Mean Corpuscular Hemoglobin 34.3 pg (27.0-31.0); Mean Platelet Volume 6.8 fL (7.4-10.4); Platelet Count 415 thou/uL (130-400); RBC Distribution Width 15.1 % (11.5-14.5); Red Blood Cell (RBC) Count 2.35 mill/uL (4.20-5.40); White Blood Cell (WBC) Count 7.6 thou/uL (4.8-10.8)
[2018-05-23 06:39] LABS: HIV (1/2) Antibody/Antigen Non-Reactive (NonReactive); HIV 1/2 INDEX 0.14 S/CO (<1.00)
[2018-05-23] MEDS: Ascorbic Acid 500 mg Chewable Tablet PO SCH (08:34)
[2018-05-23] MEDS: busPIRone HCl 10 MG TAB PO SCH ×2 (08:35→14:58)
[2018-05-23] MEDS: Ferrous Sulfate 325 MG TAB PO SCH ×2 (08:35→17:44)
[2018-05-23] MEDS: Zinc Sulfate 220 MG CAP PO SCH (08:35)
[2018-05-23] MEDS: DULoxetine 30 MG CAP PO SCH (08:35)
[2018-05-23] MEDS: traMADol HCl 50 MG TAB PO PRN ×2 (08:35→15:04)
[2018-05-23 08:59] LABS: Albumin 2.5 g/dL (3.4-4.8)
[2018-05-23 09:00] LABS: Chloride 100 mmol/L (98-107); Magnesium 1.6 mg/dL (1.6-2.6); Potassium 4.1 mmol/L (3.5-5.1); Sodium 133 mmol/L (136-145)
[2018-05-23] MEDS ORDERED: Multivitamins CHEW w/Iron Tablet PO SCH (09:00)
[2018-05-23 09:01] LABS: Calcium 8.2 mg/dL (7.8-10.44)
[2018-05-23 09:02] LABS: Protein, Total 5.5 g/dL (6.0-8.3)
[2018-05-23 09:03] LABS: Anion Gap 6 mmol/L (10-20); Bilirubin, Total 0.2 mg/dL (0.2-1.2); Carbon Dioxide 31 mmol/L (23-31)
[2018-05-23 09:04] LABS: Alkaline Phosphatase 63 U/L (40-150)
[2018-05-23 09:05] LABS: Calc. Creatinine Clearance 65 mL/min (70-130); Estimated GFR-MDRD Greater than 90
[2018-05-23 09:06] LABS: BUN (Urea Nitrogen) 29 mg/dL (9.8-20.1)
[2018-05-23 09:07] LABS: ALT (SGPT) 13 U/L (8-55); AST (SGOT) 11 U/L (5-34)
[2018-05-23 09:08] LABS: Glucose 47 mg/dL (80-115); Phosphorus 1.5 mg/dL (2.3-4.7)
[2018-05-23 11:56] VITALS: TEMP 98.1
--- NOTE | 2018-05-23 14:17 | PRG ---
DATE OF SERVICE: 05/23/2018 SUBJECTIVE: Ms. Chew is doing well today. Temperature 98.1, heart rate 96, blood pressure 97/60. She feels much better since being hydrated. She is consuming most of her diet. She is having decreased ileostomy output, but adequate. White count 7.6. Hemoglobin 8.1 after hydration, decrease in her hemoglobin from 11.3. Sodium 133, potassium 4.1. Her glucose was low this morning. She was asymptomatic and she ate and it resolved to 118. Phosphorus 1.5, low, and she was given sodium phos. OBJECTIVE: LUNGS: Clear to auscultation. CARDIAC: Regular rate and rhythm without murmur or gallop. ABDOMEN: Soft, nontender. ASSESSMENT AND PLAN: Her cortisone stimulation test was negative for adrenal insufficiency. She has Crohn disease based on re-evaluation of her pathology requested by Pathology. She has moderate protein-calorie malnutrition and Crohn disease with significant weight loss and has had dizziness, weakness, and falling. She is now stable on her feet and blood pressure stable and she is well hydrated. She is going home on home TPN 12 hours a day. She will have outpatient labs once a week. She will have follow up in my office in 1 to 2 weeks, follow up with Dr. Mazariegos in 1 to 2 weeks. Job ID: [id number]
--- NOTE | 2018-05-23 14:24 | DIS ---
DATE OF ADMISSION: 05/20/2018 DATE OF DISCHARGE: 05/23/2018 DISCHARGE DIAGNOSES: 1. Protein malnourishment. 2. Severe dehydration, acute kidney injury, prerenal azotemia. 3. Anemia. No transfusion. Nutrition related and recent surgery. 4. Open wound abdomen. Has not been able to secure outpatient wound VAC due to [id number] insurance. 5. Electrolyte abnormality, phosphorus depletion. 6. Crohn disease. 7. Hypothyroidism. Increase thyroid dose from 75 mcg to 125 mcg a day. Follow up with Dr. Valentino in 2 to 3 weeks, Dr. Mazariegos in 2 to 3 weeks. DISCHARGE MEDICATIONS: 1. Tylenol p.r.n. 2. BuSpar 10 mg t.i.d. 3. Cymbalta 30 mg daily. 4. Iron sulfate twice a day. 5. Levothyroxine 125 mcg a day. 6. Multivitamins daily. 7. Home TPN. 8. P.r.n. ibuprofen. 9. Tylenol. 10. Tramadol. HISTORY: A 62-year-old female status post recent operation with extensive adhesiolysis and resection of small bowel and ileocolic anastomosis due to Crohn disease with intra-abdominal abscesses. She had an ileostomy placed due to her past history of weight loss and intra-abdominal infection. At home, the patient was feeling weak, falling, severely dehydrated, not doing well at all. She was admitted for IV fluid hydration, initiation of TPN for excessive weight loss. Dr. Mazariegos saw her in consultation. The patient was hydrated. Hemoglobin dropped from 11 to 8.5 with hydration. Phosphorus was low and was treated. She was given TPN and hydration. Her prerenal azotemia improved. Her renal function improved. She was ambulating stable without weakness without orthostatic symptoms. She has been discharged home with outpatient disposable VAC for a week. She will follow up with wound care next week. She is discharged home with a PICC line left arm and TPN. She will have labs, CBC, comp met, magnesium, phosphorus weekly on Wednesdays for the next 3 weeks and see me in 2 weeks[address] She [address] Mazariegos in outpatient. Job ID: [id number]
[2018-05-23 15:21] VITALS: BP 119/61
[2018-05-23 16:12] LABS: Ref Lab Test Ordered TPMT; Reference Lab Name PROMETHEUS
[2018-05-23] MEDS: Thiamine HCl 200 MG/2 ML VIAL SLOW IVP SCH (17:44)
[2018-05-23] MEDS ORDERED: SODIUM ACETATE IV SCH (22:00)
[2018-05-23] MEDS ORDERED: [UNRECOGNIZED DRUG - OTHER] IV SCH (22:00)
[2018-05-23] MEDS ORDERED: SODIUM CHLORIDE IV SCH (22:00)
[2018-05-23] MEDS ORDERED: POTASSIUM CHLORIDE IV SCH (22:00)
[2018-05-26 18:09] LABS: Neutral Fats And/Or Soaps Normal (.)
== END 2018-05-23 21:40 | disposition home or self-care (01) | DRG 386 ==
LOC: EEVIPCON 14:02 → SURG A 14:02
PROVIDERS: ADMIT Specialist; ATTEND Specialist
PROC: 02HV33Z Insertion of Infusion Device into Superior Vena Cava, Percutaneous Approach (ICD-10-PCS; principal; 2018-05-20)
PROC: B548ZZA Ultrasonography of Superior Vena Cava, Guidance (ICD-10-PCS; 2018-05-20)
PROC: 3E03317 Introduction of Other Thrombolytic into Peripheral Vein, Percutaneous Approach (ICD-10-PCS; 2018-05-20)
DX: K50.90 Crohn's disease, unspecified, without complications (principal); E44.0 Moderate protein-calorie malnutrition; R64 Cachexia; Z68.1 Body mass index [BMI] 19.9 or less, adult; F17.210 Nicotine dependence, cigarettes, uncomplicated; E03.9 Hypothyroidism, unspecified; E86.0 Dehydration; R26.81 Unsteadiness on feet; D64.9 Anemia, unspecified; S31.109A Unspecified open wound of abdominal wall, unspecified quadrant without penetration into peritoneal cavity, initial encounter
CPT/HCPCS: 36415; 36416; 36569; 80053; 80400; 82607; 82705; 83735; 84100; 84134; 84425; 84443; 85025; 86480; 86704; 86706; 86803; 87340; 87389; C1751; J0834; J1644; J1650; J1815; J2405; J3411; J3475; J3480; J7050

== ENCOUNTER 2018-05-28 08:42 | Day surgery (SDC) | payer BC, OTHER ==
--- NOTE | 2018-05-27 07:45 | HP ---
HISTORY OF PRESENT ILLNESS: Margoth Chew is a 62-year-old female, returns to the office after recent hospitalization. She has Crohn disease. She had prolonged adhesiolysis for more than 3-1/2 hours with small bowel resection. She has a temporary ileostomy. This is in the left upper abdomen. She was recently re-admitted because of significant weight loss, dehydration, had a PICC line placed, TPN home infusion initiated over 12 hours. She has been doing fairly well, but noted some swelling in her left arm with increasing pain. Plan at this time is to place a Fontanez catheter under IV sedation and local anesthesia as an outpatient. She understands the risks and benefits and consents. The patient has Self-Pay for a wound VAC. They are seeing her wound care. Plan is to change her wound VAC during her Fontanez catheter placement and PICC line removal. She understands the risks and benefits and consents. MEDICATIONS: 1. Cymbalta. 2. Tramadol. PAST MEDICAL HISTORY: Crohn disease. PAST SURGICAL HISTORY: Exploratory laparotomy and ileocolic resection with extensive adhesiolysis. She has had prior operations, multiple, since a late teenager with multiple small bowel resections and dilatations of small bowel. SOCIAL HISTORY: She has not smoked in more than 10 or 15 years. Alcohol, none. PHYSICAL EXAMINATION: VITAL SIGNS: Blood pressure 106/51, heart rate 95, temperature 99.1 degrees. HEAD, EARS, EYES, NOSE, AND THROAT: Unremarkable. LUNGS: Clear to auscultation. CARDIAC: Regular rhythm without murmur or gallop. ABDOMEN: Soft and nontender. Wound VAC in place. EXTREMITIES: Left upper arm PICC line. Mild induration and tenderness, medial upper arm. Mild swelling, AC upper arm area. The patient detects some redness, although I cannot appreciate this. ASSESSMENT AND PLAN: Dysfunctional PICC line, possible thrombosis. We will plan placement of a Fontanez catheter under IV sedation and local anesthesia as an outpatient IJ as well as removal of PICC line and ask Wound Care to visit the operating room at that time to change her wound VAC. Job ID: [id number]
[2018-05-27 10:14] VITALS: BMI 17.4
[2018-05-28] MEDS ORDERED: Lidocaine 2% PF 5 ML VIAL ONE (08:49)
[2018-05-28] MEDS ORDERED: Bupivacaine HCl 0.5%/Epinephrine 1:200,000/PF 30 ml Vial ONE (08:49)
[2018-05-28] MEDS ORDERED: Ketorolac Tromethamine 30 MG/ML VIAL ONE (10:15)
[2018-05-28] MEDS ORDERED: Midazolam HCl 2 mg/2 ml Vial ONE (10:33)
[2018-05-28] MEDS ORDERED: Fentanyl 100 MCG/2 ML VIAL ONE (10:33)
--- NOTE | 2018-05-28 11:37 | OP ---
DATE OF PROCEDURE: 05/28/2018 PREOPERATIVE DIAGNOSES: Crohn's disease, weight loss, malnutrition, short-gut, dehydration, electrolyte imbalance, PICC line complication with indurated painful medial left upper arm. POSTOPERATIVE DIAGNOSES: Crohn's disease, weight loss, malnutrition, short-gut, dehydration, electrolyte imbalance, PICC line complication with indurated painful medial left upper arm. PROCEDURE PERFORMED: Right subclavian vein dual-lumen Fontanez catheter, fluoroscopy used. ANESTHESIA: TIVA, local of 0.5% Marcaine with epinephrine 30 mL mixed with 2% Xylocaine 10 mL. DESCRIPTION OF PROCEDURE: The patient was taken to the operating room, where under intravenous sedation, chest and neck were prepared with ChloraPrep and draped in routine fashion. Local anesthetic mixture was infiltrated into the skin and subcutaneous tissue about the operative site. Infraclavicular right subclavian vein approach cannulated the right subclavian vein, J-wire threaded, trocar catheter removed. The skin site was enlarged sharply. Under fluoroscopic visualization, dilator and Peel-Away sheath placed over the J-wire into the superior vena cava. Dilator and J-wire were removed and catheter was tailored to length and placed through the Peel-Away sheath, placed the fabric cuff beneath the skin exit site and Peel-Away sheath removed. Fluoroscopically, catheter was noted to be in good position and catheter was secured with interrupted sutures of 3-0 nylon. Sterile dressings were applied. Each port aspirated blood, flushed with heparinized saline solution. The patient tolerated the procedure well. Job ID: [id number]
--- NOTE | 2018-05-28 13:36 | RAD ---
FRONTAL RADIOGRAPH CHEST: Date: 05-28-18 Comparison: 04-26-18 History: Evaluate chest following central line placement. FINDINGS: There is a right sided vascular catheter, inserted via subclavian approach, with distal tip overlying the region of the right atrium. No pneumothorax, pleural fluid, lobar consolidation or alveolar rachel a. Mild increased linear interstitial density. There is mild linear vascular calcification in the reg ion of the aortic arch. Subtle age indeterminate rib fractures suspected involving the lateral aspect of the left 7th and 8th ribs. IMPRESSION: Vascular catheter as above. POS: VICTOR MANUEL
[2018-05-28] MEDS ORDERED: PROPOFOL 200 MG/20 ML VIAL ONE (15:47)
[2018-05-28] MEDS ORDERED: Lidocaine 1% PF 5 ML VIAL ONE (15:47)
== END 2018-05-28 12:30 | disposition home or self-care (01) ==
LOC: ERS 08:42 → EDSTATUS 08:42 → SDC 09:58
PROVIDERS: ATTEND Specialist
PROC: 02HV33Z Insertion of Infusion Device into Superior Vena Cava, Percutaneous Approach (ICD-10-PCS; principal; 2018-05-28)
DX: T82.514A Breakdown (mechanical) of infusion catheter, initial encounter (principal); T82.848A Pain due to vascular prosthetic devices, implants and grafts, initial encounter; K50.90 Crohn's disease, unspecified, without complications; E86.0 Dehydration; E46 Unspecified protein-calorie malnutrition; Z68.1 Body mass index [BMI] 19.9 or less, adult; Z87.891 Personal history of nicotine dependence; Z79.899 Other long term (current) drug therapy; Z88.5 Allergy status to narcotic agent; Z90.49 Acquired absence of other specified parts of digestive tract; Z93.2 Ileostomy status; Z98.890 Other specified postprocedural states
CPT/HCPCS: 71045; 99284; C1751; J0131; J0670; J1642; J1885; J2001; J2250; J2704; J3010

== ENCOUNTER 2018-05-30 10:32 | Outpatient (CLI) | payer OTHER ==
[~2018-05-30 10:32] MED LIST changes: -ISOVUE-370 76%-LOCM 1 ML ONE; +Sodium Chloride 0.9% 15 ML NEB ONE
--- NOTE | 2018-05-30 12:33 | PRG ---
DATE OF SERVICE: 05/30/2018 SUBJECTIVE: Margoth Chew is doing well today. She is seen in Wound Care. Her midline wound is granulating, it still tunnels cephalad approximately 5 cm. She is out of network for the wound VAC. Nu Gauze strips applied to the tunnel. She will be seen in Wound Care in [facility], where she is in network for insurance, they will assume her wound care. 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 She has an appointment to see Dr. Mazairegos, Gastroenterology in the near future to discuss her Crohn's treatment. Her ileostomy is healthy and doing well. She continues home TPN. Laboratories recently were normal. She has Fontanez line, right subclavian vein placed and after removal of her left arm PICC line, her left arm pain has resolved. She does not have any edema. There is no redness. The patient is doing well. She will continue home TPN for now. I will see her in office in 2 to 3 weeks. At some point, we will discontinue the home TPN, I anticipate. Job ID: [id number]
== END 2018-05-30 10:33 | disposition home or self-care (01) ==
LOC: WCC 10:32
PROVIDERS: ATTEND Family Medicine
DX: T81.89XD Other complications of procedures, not elsewhere classified, subsequent encounter (principal)
CPT/HCPCS: 99211; A4218; G0463